=== PATIENT | male | born 1975 | race Caucasian/White ===

== ENCOUNTER 2016-08-22 10:57 | Inpatient (IN) | payer OTHER ==
[~2016-08-22] VITALS: Ht 180.3 cm; Wt 82.0 kg
[~2016-08-22 10:57] MED LIST: ATEN-104 PO; DILA8TAB4 PO; MORP60TA20 PO; RANI150 PO; VALI10TA PO
[2016-08-22 11:00] VITALS: BP 131/91; PULSE 101; RESP 16; TEMP 98.5; O2SAT 99
[2016-08-22] MEDS ORDERED: VANCOMYCIN INJ 1,000 MG in SODIUM CHLOR 0.9% 250 ML INJ 250 ML IV STA (11:20)
[2016-08-22] MEDS ORDERED: PIPERACIL-TAZO 4.5 GM PREMIX 100 ML IV STA (11:20)
[2016-08-22] MEDS ORDERED: SODIUM CHLOR 0.9% 1000 ML INJ 400 ML IV ONE (11:20)
[2016-08-22] MEDS ORDERED: SODIUM CHLOR 0.9% 1000 ML INJ 1,000 ML IV ONE ×2 (11:20)
[2016-08-22] MEDS ORDERED: ONDANSETRON HCL 4 MG/2 ML VIAL IV ONE (11:30)
--- NOTE | 2016-08-22 11:36 | PD ---
HPI . Redness and pain on the abdominal wall Chief Complaint: Skin Problem Time Seen by Provider: 11:11 Travel History International Travel<30 days: No Contact w/Intl Traveler<30days: No Traveled to known affect area: No History of Present Illness HPI The patient presents with a one-week history of redness and pain on the abdominal wall. He presumed infection and took some Keflex that he had left over from a previous infection. The Keflex did not help. Also, the patient has been on penicillin for dental infection. He describes the pain as constant and sharp and rates it as 8/10. He denies any associated fever. He does say that he had some vomiting earlier in the week. The patient is unable to me how his symptoms started and how they progressed. PFSH Past Medical History Arthritis: No Asthma: No Autoimmune Disease: No Blood Disorders: No Anxiety: No Depression: No Heart Rhythm Problems: No Cancer: No Cardiovascular Problems: No High Cholesterol: No Chemotherapy: No Chest Pain: No Congestive Heart Failure: No COPD: No Cerebrovascular Accident: No Diabetes: No Diminished Hearing: No Gastrointestinal Disorders: No GERD: No Glaucoma: No Headaches: No Hepatitis: No Hiatal Hernia: No Hypertension: Yes Kidney Stones: Yes Myocardial Infarction: No Radiation Therapy: No Renal Failure: No Seizures: No Sickle Cell Disease: No Sleep Apnea: No Thyroid Disease: No Ulcer: No Tetanus Vaccination: < 5 Years Influenza Vaccination: No Past Surgical History Abdominal Surgery: No AICD: No Body Medical Devices: KIDNEY STENT IN PLACE Cardiac Surgery: No Ear Surgery: No Endocrine Surgery: No Eye Surgery: No Genitourinary Surgery: Yes (KIDNEY STONE AND STENT) Gynecologic Surgery: No Oral Surgery: No Pacemaker: No Thoracic Surgery: No Other Surgery: Yes ("plastic stent in my back somewhere's for my kidneys") Social History Alcohol Use: Yes (20 BEERS/WEEK.... quit week ago) Tobacco Use: Yes ("1/2 pack of cigarettes a day") Substance Use: No Allergies-Medications (Allergen,Severity, Reaction): Coded Allergies: No Known Allergies (Verified , 08/22/16) Reported Meds & Prescriptions Reported Meds & Active Scripts Active Review of Systems Except as stated in HPI: all other systems reviewed are Neg General / Constitutional: No: Fever, Chills Gastrointestinal: Positive: Nausea, Vomiting, No: Diarrhea, Loss of Appetite Skin: Positive Change in Pigmentation Physical Exam Narrative Vital Signs Date Time Temp Pulse Resp B/P Pulse Ox O2 Delivery O2 Flow Rate FiO2 08/22/16 11:00 98.5 101 16 131/91 99 GENERAL: The patient is unusually emotional. SKIN: Warm and dry. The skin of his left abdominal wall is bright red. The redness extends to the left low back almost to the midline of the back. The patient is unable to tolerate palpation of the area. HEAD: Atraumatic. Normocephalic. EYES: Pupils equal and round. Extraocular movements are intact. ENT: No nasal bleeding or discharge. Mucous membranes pink and moist. NECK: Trachea midline. Neck is supple. CARDIOVASCULAR: Regular rate and rhythm. RESPIRATORY: No accessory muscle use. GASTROINTESTINAL: Thorough abdominal exam is not possible at this time because of the painful rash. MUSCULOSKELETAL: No obvious deformities. No edema. NEUROLOGICAL: Awake and alert. No obvious cranial nerve deficits. Motor grossly within normal limits. Normal speech. PSYCHIATRIC: Appropriate mood and affect; insight and judgment normal. Data Data Last Documented VS Vital Signs Date Time Temp Pulse Resp B/P Pulse Ox O2 Delivery O2 Flow Rate FiO2 08/22/16 11:00 98.5 101 16 131/91 99 Orders Complete Blood Count With Diff (08/22/16 11:20) Comprehensive Metabolic Panel (08/22/16 11:20) Lactic Acid Sepsis Protocol (08/22/16 11:20) Urinalysis - C+S If Indicated (08/22/16 11:20) Blood Culture (08/22/16 11:20) Iv Access Insert/Monitor (08/22/16 11:20) Morphine Inj (Morphine Inj) (08/22/16 11:30) Ondansetron Inj (Zofran Inj) (08/22/16 11:30) Ct Abd/Pel W Iv Contrast(Rout) (08/22/16 11:20) Piperacil-Tazo 4.5 Gm Premix (Zosyn 4.5 (08/22/16 11:20) Vancomycin Inj (Vancomycin Inj) (08/22/16 11:20) Sodium Chlor 0.9% 1000 Ml Inj (Ns 1000 M (08/22/16 11:20) Sodium Chlor 0.9% 1000 Ml Inj (Ns 1000 M (08/22/16 11:20) Sodium Chlor 0.9% 1000 Ml Inj (Ns 1000 M (08/22/16 11:20) Drug Screen, Random Urine (08/22/16 11:20) Alcohol (Ethanol) (08/22/16 11:20) Iohexol 350 Inj (Omnipaque 350 Inj) (08/22/16 12:11) Diet Regular Basic (08/22/16 Lunch) Vital Signs (Adult) SJ.Q4H (08/22/16 12:41) Ondansetron Inj (Zofran Inj) (08/22/16 12:45) Complete Blood Count With Diff (08/23/16 06:00) Labs Laboratory Tests Test 08/22/16 11:40 White Blood Count 17.6 TH/MM3 Red Blood Count 4.76 MIL/MM3 Hemoglobin 14.9 GM/DL Hematocrit 43.6 % Mean Corpuscular Volume 91.6 FL Mean Corpuscular Hemoglobin 31.2 PG Mean Corpuscular Hemoglobin 34.1 % Concent Red Cell Distribution Width 11.9 % Platelet Count 269 TH/MM3 Mean Platelet Volume 7.4 FL Neutrophils (%) (Auto) 81.3 % Lymphocytes (%) (Auto) 10.5 % Monocytes (%) (Auto) 5.4 % Eosinophils (%) (Auto) 1.4 % Basophils (%) (Auto) 1.4 % Neutrophils # (Auto) 14.5 TH/MM3 Lymphocytes # (Auto) 1.8 TH/MM3 Monocytes # (Auto) 0.9 TH/MM3 Eosinophils # (Auto) 0.2 TH/MM3 Basophils # (Auto) 0.2 TH/MM3 CBC Comment DIFF FINAL Differential Comment Sodium Level 140 MEQ/L Potassium Level 3.5 MEQ/L Chloride Level 103 MEQ/L Carbon Dioxide Level 28.9 MEQ/L Anion Gap 8 MEQ/L Blood Urea Nitrogen 9 MG/DL Creatinine 1.10 MG/DL Estimat Glomerular Filtration 74 ML/MIN Rate Random Glucose 102 MG/DL Lactic Acid Level 1.9 mmol/L Calcium Level 9.1 MG/DL Total Bilirubin 0.5 MG/DL Aspartate Amino Transf 26 U/L (AST/SGOT) Alanine Aminotransferase 32 U/L (ALT/SGPT) Alkaline Phosphatase 97 U/L Total Protein 8.3 GM/DL Albumin 3.3 GM/DL Ethyl Alcohol Level 68 MG/DL [facility] Medical Decision Making Medical Screen Exam Complete: Yes Emergency Medical Condition: Yes Differential Diagnosis My differential diagnosis includes but is not limited to localized wound infection, cellulitis, abscess Narrative Course Patient presents with cellulitis on the left abdominal wall. It is actually pretty impressive. It extends from the midline of his abdomen around to the midline of his back on the left side. It involves several dermatomes. It does not look like shingles although it is confined to the left side. The skin is bright red and warm to the touch. I have ordered an abdominal CT to see the extent of the cellulitis and to rule out possible abscess. I have also done a septic workup. In the meantime, he will be given Zosyn and vancomycin. I have also ordered a fluid bolus. Last Impressions Abdomen/Pelvis CT 08/22/16 1120 Signed Impressions: Service Date/Time: Monday, August 22, 2016 11:49 - CONCLUSION: 1. Edema and skin thickening in the left anterior abdominal wall most characteristic of cellulitis without discrete or loculated abscess. No acute findings within the abdomen and pelvis. Small hiatal hernia. Erwin Jones MD CBC & BMP Diagram 08/22/16 11:40 Lactic acid level is normal. Alcohol level was 68. Sepsis Criteria SIRS Criteria (2 or more): Heart rate over 90, WBC > 70495, < 4000 or > 10% bands Sepsis Criteria (SIRS+source): Infect source susp/known Criteria Outcome: Meets SIRS criteria, Meets sepsis criteria Physician Communication Physician Communication Dr. Jean will admit for IV ABX. Diagnosis Primary Impression: Abdominal wall cellulitis Additional Impression: Sepsis affecting skin Condition: Stable Vicki Hernandez MD August 22, 2016 11:36
[2016-08-22 12:04] LABS: AUTOMATED NEUTROPHIL # 14.5 TH/MM3 (1.8-7.7); BASOPHIL # 0.2 TH/MM3 (0-0.2); BASOPHIL % 1.4 % (0.0-2.0); EOSINOPHIL # 0.2 TH/MM3 (0-0.4); EOSINOPHIL % 1.4 % (0.0-4.0); HEMATOCRIT 43.6 % (39.0-51.0); LYMPH % 10.5 % (9.0-44.0); LYMPHOCYTE # 1.8 TH/MM3 (1.0-4.8); MEAN CELL VOLUME 91.6 FL (80.0-100.0); MEAN CORPUSCULAR HEMOGLOBIN 31.2 PG (27.0-34.0); MEAN CORPUSCULAR HGB CONC 34.1 % (32.0-36.0); MONO % 5.4 % (0.0-8.0); NEUT % 81.3 % (16.0-70.0); PLATELET COUNT 269 TH/MM3 (150-450); RED BLOOD COUNT 4.76 MIL/MM3 (4.50-5.90); RED CELL DISTRIBUTION WIDTH 11.9 % (11.6-17.2); WHITE BLOOD COUNT 17.6 TH/MM3 (4.0-11.0)
[2016-08-22 12:05] LABS: HEMO FLAGS DIFF FINAL
[2016-08-22] MEDS: MORPHINE SULFATE 8 MG/ML INJ IV PUSH PRN ×4 (12:06→23:55)
[2016-08-22 12:07] LABS: CHLORIDE 103 MEQ/L (98-107); POTASSIUM 3.5 MEQ/L (3.5-5.1); SODIUM (NA) 140 MEQ/L (136-145)
[2016-08-22 12:10] LABS: ANION GAP 8 MEQ/L (5-15); BICARBONATE 28.9 MEQ/L (21.0-32.0)
[2016-08-22 12:11] LABS: BLOOD UREA NITROGEN 9 MG/DL (7-18)
[2016-08-22] MEDS ORDERED: IOHEXOL 350 MG/ML 10 ML VIAL (for RAD DIAG) IV ONE (12:11)
[2016-08-22 12:13] LABS: ALT (GPT) 32 U/L (12-78); AST (GOT) 26 U/L (15-37)
[2016-08-22 12:14] LABS: GLOMERULAR FILTRATION RATE 74 ML/MIN (>89)
[2016-08-22 12:15] LABS: TOTAL BILIRUBIN ADULT 0.5 MG/DL (0.2-1.0)
[2016-08-22 12:16] LABS: ALKALINE PHOSPHATASE 97 U/L (45-117)
--- NOTE | 2016-08-22 12:21 | RADHPO ---
EXAM DATE/TIME: 08/22/2016 11:49 [place] COMPARISON: No previous studies available for comparison. INDICATIONS : Pain and redness across the middle of abdomen for a week. IV CONTRAST: 100 cc Omnipaque 350 (iohexol) IV ORAL CONTRAST: No oral contrast ingested. RADIATION DOSE: 9.98 CTDIvol (mGy) MEDICAL HISTORY : Renal calculi. stents SURGICAL HISTORY : None. ENCOUNTER: Initial ACUITY: 1 week PAIN SCALE: 10/10 LOCATION: Bilateral abdomen TECHNIQUE: Volumetric scanning of the abdomen and pelvis was performed. Using automated exposure control and ad justment of the mA and/or kV according to patient size, radiation dose was kept as low as reasonably achievable to obtain optimal diagnostic quality images. FINDINGS: There is skin thickening and extensive stranding in the subcutaneous tissues of the anterior abdomina l wall on the left side both above and below the umbilicus is characteristic of a cellulitis. No disc rete or drainable fluid to suggest abscess. Minimal basilar atelectasis in the lungs. Small hiatal hernia. Mild fatty liver. Spleen, adrenals, ki dneys and pancreas unremarkable. No calcified gallstones or biliary ductal dilatation. There is no free fluid. No bowel obstruction. No adenopathy. CONCLUSION: 1. Edema and skin thickening in the left anterior abdominal wall most characteristic of cellulitis wi thout discrete or loculated abscess. No acute findings within the abdomen and pelvis. Small hiatal he rnia. Erwin Jones MD on August 22, 2016 at 12:15 Board Certified Radiologist. This report was verified electronically.
[2016-08-22] MEDS ORDERED: ONDANSETRON HCL 4 MG/2 ML VIAL IV PUSH PRN (12:45)
[2016-08-22 13:12] VITALS: BP 123/67; PULSE 72; RESP 18; O2SAT 97
[2016-08-22] MEDS ORDERED: Vancomycin Consult Pharmacy 1 EA OTHER SCH (13:15)
[2016-08-22] MEDS ORDERED: ACETAMINOPHEN/HYDROcodone 325 MG/5 MG TAB PO PRN (13:15)
[2016-08-22] MEDS ORDERED: ACETAMINOPHEN 325 MG TAB PO PRN (13:15)
[2016-08-22] MEDS: HYDROmorphone HCL PF 1 MG/ML VIAL IV PUSH PRN ×3 (13:19→22:37)
--- NOTE | 2016-08-22 13:19 | HHI.HP ---
[facility] No Primary Care Physician Admission Diagnosis abdominal wall cellulitis, sepsis Diagnoses: (1) Abdominal wall cellulitis Diagnosis: Principal (2) Sepsis affecting skin Diagnosis: Principal Chief Complaint: swelling and redness of the abdomen Travel History International Travel<30 Days: No Contact w/Intl Traveler <30 Da: No Traveled to Known Affected Are: No History of Present Illness patient is a 41 y/o male with history of hypertension who presented to ER with swelling and redness of the abdomen. he says that it probably started as a ' spider bite' a week ago. the redness, swelling and pain started to get worse.this involves the left side of the abdomen with some radiation to the left flank. he reports some fever and chills at home. he says that he took some keflex at home but with no significant improvement. Review of Systems Constitutional: COMPLAINS OF: Fever, Chills, DENIES: Weight loss, Night Sweats Eyes: DENIES: Blurred vision, Diplopia, Vision loss, Double Vision Ears, nose, mouth, throat: DENIES: Tinnitus, Vertigo, Throat pain, Epistaxis Respiratory: DENIES: Apneas, Cough, Snoring, Wheezing, Hemoptysis, Sputum production, Shortness of breath Cardiovascular: DENIES: Chest pain, Palpitations, Syncope, Dyspnea on Exertion , PND, Lower Extremity Edema, Orthopnea, Claudication Gastrointestinal: COMPLAINS OF: Abdominal pain, DENIES: Black stools, Bloody stools, Constipation, Diarrhea, Nausea, Vomiting, Difficulty Swallowing, Anorexia Genitourinary: DENIES: Urinary frequency, Urgency, Hematuria, Dysuria Musculoskeletal: DENIES: Joint pain, Muscle aches, Stiffness, Joint Swelling Integumentary: DENIES: Rash Neurologic: DENIES: Abnormal gait, Headache, Localized weakness, Paresthesias, Seizures, Speech Problems, Tremor, Poor Balance Psychiatric: DENIES: Anxiety, Confusion, Mood changes, Depression, Hallucinations, Agitation, Suicidal Ideation, Homicidal Ideation, Delusions Past Family Social History Past Medical History hypertension Past Surgical History surgery on the left leg. Reported Medications used to take atenolol in the past. Allergies: Coded Allergies: No Known Allergies (Verified , 08/22/16) Active Ordered Medications Current Medications Morphine Sulfate (Morphine Inj) 4 mg Q1HR PRN IV PUSH PAIN Last administered on 08/22/16 12:06; Start 08/22/16 at 11:30 Ondansetron HCl 4 mg 4 mg ONCE ONCE IV Last administered on 08/22/16 12:06; Start 08/22/16 at 11:30; Stop 08/22/16 at 11:31; Status DC Piperacillin Sod/ Tazobactam Sod 100 ml @ 200 mls/hr ONCE STAT IV Last administered on 08/22/16 12:07; Start 08/22/16 at 11:20; Stop 08/22/16 at 11:49 ; Status DC Vancomycin HCl 1000 mg/Sodium Chloride 250 ml @ 250 mls/hr ONCE STAT IV Last administered on 08/22/16 12:37; Start 08/22/16 at 11:20; Stop 08/22/16 at 12:19 ; Status DC Sodium Chloride 1,000 ml @ 1,000 mls/hr Q1H ONCE IV Last administered on 12:07; Start 08/22/16 at 11:20; Stop 08/22/16 at 12:19; Status DC Sodium Chloride 1,000 ml @ 1,000 mls/hr Q1H ONCE IV ; Start 08/22/16 at 11:20; Stop 08/22/16 at 12:19; Status DC Sodium Chloride (NS 1000 ml Inj) 400 ml @ 1,000 mls/hr Q24M ONCE IV ; Start at 11:20; Stop 08/22/16 at 11:43; Status DC Iohexol (Omnipaque 350 Inj) 100 ml STK-MED ONCE IV Last administered on 12:11; Start 08/22/16 at 12:11; Stop 08/22/16 at 12:12; Status DC Ondansetron HCl (Zofran Inj) 4 mg Q8HR PRN IV PUSH NAUSEA; Start 08/22/16 at 12 :45; Status UNV Social History quit smoking a week ago. drinks occasionally and smokes marijuana. Physical Exam Vital Signs Vital Signs Date Time Temp Pulse Resp B/P Pulse Ox O2 Delivery O2 Flow Rate FiO2 08/22/16 11:00 98.5 101 16 131/91 99 Physical Exam GENERAL: This is a well-nourished, well-developed patient, in no apparent distress. SKIN: erythema noted over the left abdomen. HEAD: Atraumatic. Normocephalic. No temporal or scalp tenderness. EYES: Pupils equal round and reactive. Extraocular motions intact. No scleral icterus. No injection or drainage. ENT: Nose without bleeding, purulent drainage or septal hematoma. Throat without erythema, tonsillar hypertrophy or exudate. Uvula midline. Airway patent. NECK: Trachea midline. No JVD or lymphadenopathy. Supple, nontender, no meningeal signs. CARDIOVASCULAR: Regular rate and rhythm without murmurs, gallops, or rubs. RESPIRATORY: Clear to auscultation. Breath sounds equal bilaterally. No wheezes , rales, or rhonchi. GASTROINTESTINAL: skin induration with some erythema, warmth and swelling noted over the left abdomen. MUSCULOSKELETAL: Extremities without clubbing, cyanosis, or edema. No joint tenderness, effusion, or edema noted. No calf tenderness. Negative Homans sign bilaterally. NEUROLOGICAL: Awake and alert. Cranial nerves II through XII intact. Motor and sensory grossly within normal limits. Five out of 5 muscle strength in all muscle groups. Normal speech. Laboratory Laboratory Tests Test 08/22/16 11:40 White Blood Count 17.6 Red Blood Count 4.76 Hemoglobin 14.9 Hematocrit 43.6 Mean Corpuscular Volume 91.6 Mean Corpuscular Hemoglobin 31.2 Mean Corpuscular Hemoglobin 34.1 Concent Red Cell Distribution Width 11.9 Platelet Count 269 Mean Platelet Volume 7.4 Neutrophils (%) (Auto) 81.3 Lymphocytes (%) (Auto) 10.5 Monocytes (%) (Auto) 5.4 Eosinophils (%) (Auto) 1.4 Basophils (%) (Auto) 1.4 Neutrophils # (Auto) 14.5 Lymphocytes # (Auto) 1.8 Monocytes # (Auto) 0.9 Eosinophils # (Auto) 0.2 Basophils # (Auto) 0.2 CBC Comment DIFF FINAL Differential Comment Sodium Level 140 Potassium Level 3.5 Chloride Level 103 Carbon Dioxide Level 28.9 Anion Gap 8 Blood Urea Nitrogen 9 Creatinine 1.10 Estimat Glomerular Filtration 74 Rate Random Glucose 102 Lactic Acid Level 1.9 Calcium Level 9.1 Total Bilirubin 0.5 Aspartate Amino Transf 26 (AST/SGOT) Alanine Aminotransferase 32 (ALT/SGPT) Alkaline Phosphatase 97 Total Protein 8.3 Albumin 3.3 Ethyl Alcohol Level 68 Date/Time Procedure Status Source Growth 08/22/16 11:47 Aerobic Blood Culture Received Blood Peripheral Pending 08/22/16 11:47 Anaerobic Blood Culture Received Blood Peripheral Pending Result Diagram: 08/22/16 1140 08/22/16 1140 Imaging Last Impressions Abdomen/Pelvis CT 08/22/16 1120 Signed Impressions: Service Date/Time: Monday, August 22, 2016 11:49 - CONCLUSION: 1. Edema and skin thickening in the left anterior abdominal wall most characteristic of cellulitis without discrete or loculated abscess. No acute findings within the abdomen and pelvis. Small hiatal hernia. Erwin Jones MD Assessment and Plan Assessment and Plan A/P - sepsis due to abdominal wall cellulitis CT of the abdomen with no abscess continue with broad spectrum IV antibiotics- continue with pain control follow the cultures and consult ID. -leukocytosis- due to infection- will monitor; CBC in am -history of hypertension; not on any meds- will monitor for now Discussed Condition With ER physician and the patient. Physician Certification 2 Midnight Certification Type: Admission for Inpatient Services Order for Inpatient Services The services are ordered in accordance with Medicare regulations or non- Medicare payer requirements, as applicable. In the case of services not specified as inpatient-only, they are appropriately provided as inpatient services in accordance with the 2-midnight benchmark. Estimated LOS (days): 2 days is the estimated time the patient will need to remain in the hospital, assuming treatment plan goals are met and no additional complications. Post-Hospital Plan: Home Rick Jean MD August 22, 2016 13:19
[2016-08-22] MEDS: ACETAMINOPHEN/HYDROcodone 325 MG/5 MG TAB PO PRN ×2 (13:20→21:37)
[2016-08-22] MEDS: NICOTINE 21 MG/24 HR PATCH T-DERMAL SCH (15:44)
[2016-08-22 16:00] VITALS: BP 137/87; PULSE 68; RESP 20; TEMP 96; O2SAT 99
[2016-08-22] MEDS ORDERED: PIPERACIL-TAZO 3.375 GM PREMIX 50 ML IV SCH (18:00)
--- NOTE | 2016-08-22 19:34 | PD.ID.CON ---
History of Present Illness Service ID Consult Requested By Dr Cavanaugh Reason for Consult abd wall cellulitis Primary Care Physician No Primary Care Physician Diagnoses: History of Present Illness The patient is a 41 yo male with fairly unremarkable past med history presents with a one-week history of redness and pain on the abdominal wall. He took some Keflex that he had left over from a previous infection, but it did not help. He denies any fever. 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 Active Ordered Medications Medications where reviewed in EMR Antibiotics Include: zosyn vanco Family History Non-Contributory. Social History quit smoking a week ago. drinks occasionally and smokes marijuana. Physical Exam Vital Signs Vital Signs Date Time Temp Pulse Resp B/P Pulse Ox O2 Delivery O2 Flow Rate FiO2 08/22/16 17:40 18 08/22/16 16:00 96.0 68 20 137/87 99 08/22/16 15:29 18 08/22/16 13:12 72 18 123/67 97 08/22/16 11:00 98.5 101 16 131/91 99 Physical Exam CONSTITUTIONAL/GENERAL: This is an adequately nourished patient, in no apparent distress. TUBES/LINES/DRAINS: SKIN: No jaundice, Large about 10 cm area of induration in LLQ exquisetely tender to palpation no fluctuance erytjma and tenderness is preading to the flank and L side of the back No opne lesions Few excoriations present scattred around including one on LLQ rashes, or lesions. Skin temperature appropriate. Not diaphoretic. HEAD: Atraumatic. Normocephalic. EYES: Pupils equal and round and reactive. Extraocular motions intact. No scleral icterus. No injection or drainage. Fundi not examined. ENT: Hearing grossly normal. Nose without bleeding or purulent drainage. Oral mucosae without visible erythema, exudates, masses, or lesions. NECK: Trachea midline. Supple, nontender. No palpable thyroid enlargement or nodularity. CARDIOVASCULAR: Regular rate and rhythm without murmurs, gallops, or rubs. No JVD. Peripheral pulses symmetric. RESPIRATORY/CHEST: Symmetric, unlabored respirations. Clear to auscultation. Breath sounds equal bilaterally. No wheezes, rales, or rhonchi. GASTROINTESTINAL: Abdomen soft, + tender where the skin lesion is present , nondistended. No hepato-splenomegaly, or palpable masses. No guarding. Bowel sounds present. GENITOURINARY: Without palpable bladder distension. Carter catheter in place. MUSCULOSKELETAL: Extremities without clubbing, cyanosis, or edema. No joint tenderness or effusion noted.No mottling or clubbing. LYMPHATICS: No palpable cervical or supraclavicular adenopathy. NEUROLOGICAL: Awake and alert. Motor and sensory grossly within normal limits. Follows commands. Cognitively sharp. Moves all extremities. PSYCHIATRIC: No obvious anxiety/depression. no apparent hallucinations or other psychotic thought process. Laboratory Laboratory Tests Test 08/22/16 11:40 White Blood Count 17.6 Red Blood Count 4.76 Hemoglobin 14.9 Hematocrit 43.6 Mean Corpuscular Volume 91.6 Mean Corpuscular Hemoglobin 31.2 Mean Corpuscular Hemoglobin 34.1 Concent Red Cell Distribution Width 11.9 Platelet Count 269 Mean Platelet Volume 7.4 Neutrophils (%) (Auto) 81.3 Lymphocytes (%) (Auto) 10.5 Monocytes (%) (Auto) 5.4 Eosinophils (%) (Auto) 1.4 Basophils (%) (Auto) 1.4 Neutrophils # (Auto) 14.5 Lymphocytes # (Auto) 1.8 Monocytes # (Auto) 0.9 Eosinophils # (Auto) 0.2 Basophils # (Auto) 0.2 CBC Comment DIFF FINAL Differential Comment Sodium Level 140 Potassium Level 3.5 Chloride Level 103 Carbon Dioxide Level 28.9 Anion Gap 8 Blood Urea Nitrogen 9 Creatinine 1.10 Estimat Glomerular Filtration 74 Rate Random Glucose 102 Lactic Acid Level 1.9 Calcium Level 9.1 Total Bilirubin 0.5 Aspartate Amino Transf 26 (AST/SGOT) Alanine Aminotransferase 32 (ALT/SGPT) Alkaline Phosphatase 97 Total Protein 8.3 Albumin 3.3 Ethyl Alcohol Level 68 Date/Time Procedure Status Source Growth 08/22/16 11:47 Aerobic Blood Culture Received Blood Peripheral Pending 08/22/16 11:47 Anaerobic Blood Culture Received Blood Peripheral Pending Result Diagram: 08/22/16 1140 08/22/16 1140 Imaging Last Impressions Abdomen/Pelvis CT 08/22/16 1120 Signed Impressions: Service Date/Time: Monday, August 22, 2016 11:49 - CONCLUSION: 1. Edema and skin thickening in the left anterior abdominal wall most characteristic of cellulitis without discrete or loculated abscess. No acute findings within the abdomen and pelvis. Small hiatal hernia. Erwin Jones MD Assessment and Plan Assessment and Plan Cellulitis, phlegmone and probably early abscess of abdominal wall, likely staph , including MRSA vs strep Leukocytosis Ho MRSA cont vancomycin cont zosyn for now add clindamycin consult gen surgery for I+D Raquel Marr MD August 22, 2016 19:34
[2016-08-22] MEDS ORDERED: ALPRAZolam 0.25 MG TAB PO ONE (20:15)
[2016-08-22 21:30] VITALS: BP 130/96; PULSE 63; RESP 18; TEMP 96.1; O2SAT 99
[2016-08-22] MEDS: CLINDAMYCIN INJ 900 MG in SODIUM CHLORIDE 0.9% INJ 100 ML IV SCH (21:37)
[2016-08-22] MEDS: VANCOMYCIN INJ 1,250 MG in SODIUM CHLOR 0.9% 250 ML INJ 250 ML IV SCH (22:00)
[2016-08-22] MEDS: PIPERACIL-TAZO 3.375 GM PREMIX 50 ML IV SCH (23:54)
[2016-08-23] VITALS (7 sets, daily range): BP systolic 119–171; BP diastolic 64–105; PULSE 68–94; RESP 16–20; TEMP 96.4–98.6; O2SAT 94–100
[2016-08-23] MEDS: NICOTINE 21 MG/24 HR PATCH T-DERMAL SCH (01:38)
[2016-08-23] MEDS: ACETAMINOPHEN/HYDROcodone 325 MG/5 MG TAB PO PRN ×2 (01:39→05:39)
[2016-08-23] MEDS: HYDROmorphone HCL PF 1 MG/ML VIAL IV PUSH PRN ×3 (02:49→11:47)
[2016-08-23 03:25] LABS: BLOOD, URINE NEG (NEG); GLUCOSE,URINE NEG (NEG); KETONE, URINE NEG (NEG); NITRITE,URINE NEG (NEG)
[2016-08-23 03:32] LABS: BARBITURATES, URINE NEG (NEG)
[2016-08-23 03:33] LABS: AMPHETAMINE, URINE NEG (NEG); COCAINE, URINE NEG (NEG)
[2016-08-23 03:39] LABS: COMMENT (UR) CULT NOT INDICATED; CULTURE IF INDICATED CULT NOT INDICATED; RBC, URINE 0-2 /hpf (0-3); SQUAMOUS EPITHELIAL CELL URINE 0-5 /hpf (0-5); URINE COLOR AMBER (YELLW/STRAW); WBC, URINE 0-2 /hpf (0-5)
[2016-08-23] MEDS: MORPHINE SULFATE 8 MG/ML INJ IV PUSH PRN ×3 (04:09→12:50)
[2016-08-23] MEDS: CLINDAMYCIN INJ 900 MG in SODIUM CHLORIDE 0.9% INJ 100 ML IV SCH ×3 (05:37→21:06)
[2016-08-23] MEDS: PIPERACIL-TAZO 3.375 GM PREMIX 50 ML IV SCH ×4 (05:37→23:27)
[2016-08-23 07:26] LABS: AUTOMATED NEUTROPHIL # 5.8 TH/MM3 (1.8-7.7); BASOPHIL # 0.1 TH/MM3 (0-0.2); BASOPHIL % 1.5 % (0.0-2.0); EOSINOPHIL # 0.4 TH/MM3 (0-0.4); EOSINOPHIL % 4.8 % (0.0-4.0); HEMATOCRIT 39.8 % (39.0-51.0); HEMO FLAGS DIFF FINAL; LYMPH % 18.9 % (9.0-44.0); LYMPHOCYTE # 1.6 TH/MM3 (1.0-4.8); MEAN CELL VOLUME 92.7 FL (80.0-100.0); MEAN CORPUSCULAR HEMOGLOBIN 31.1 PG (27.0-34.0); MEAN CORPUSCULAR HGB CONC 33.5 % (32.0-36.0); MONO % 8.5 % (0.0-8.0); NEUT % 66.3 % (16.0-70.0); PLATELET COUNT 231 TH/MM3 (150-450); RED BLOOD COUNT 4.29 MIL/MM3 (4.50-5.90); RED CELL DISTRIBUTION WIDTH 12.1 % (11.6-17.2); WHITE BLOOD COUNT 8.6 TH/MM3 (4.0-11.0)
--- NOTE | 2016-08-23 07:35 | HHI.PR ---
Subjective Remarks still with redness and pain to the left abdomen. remains afebrile. Objective Vitals Vital Signs Date Time Temp Pulse Resp B/P Pulse Ox O2 Delivery O2 Flow Rate FiO2 08/23/16 03:28 97.0 72 16 138/102 100 08/22/16 21:30 96.1 63 18 130/96 99 08/22/16 17:40 18 08/22/16 16:00 96.0 68 20 137/87 99 08/22/16 15:29 18 08/22/16 13:12 72 18 123/67 97 08/22/16 11:00 98.5 101 16 131/91 99 I/O 08/22/16 08/22/16 08/22/16 08/23/16 08/23/16 08/23/16 07:00 15:00 23:00 07:00 15:00 23:00 Intake Total 100 ml 1450 ml Output Total 200 ml Balance 100 ml 1450 ml -200 ml Intake Oral 900 ml IV Total 100 ml 550 ml Output Urine Total 200 ml # Voids 3 Result Diagram: 08/22/16 1140 08/22/16 1140 Imaging Last Impressions Abdomen/Pelvis CT 08/22/16 1120 Signed Impressions: Service Date/Time: Monday, August 22, 2016 11:49 - CONCLUSION: 1. Edema and skin thickening in the left anterior abdominal wall most characteristic of cellulitis without discrete or loculated abscess. No acute findings within the abdomen and pelvis. Small hiatal hernia. Erwin Jones MD Objective Remarks GENERAL: This is a well-nourished, well-developed patient, in no apparent distress. CARDIOVASCULAR: Regular rate and regular rhythm without murmurs, gallops, or rubs. RESPIRATORY: Clear to auscultation. Breath sounds equal bilaterally. No wheezes , rales, or rhonchi. GASTROINTESTINAL: erythema, skin induration and tenderness over the left abdomen MUSCULOSKELETAL: Extremities without clubbing, cyanosis, or edema. NEURO: Alert & Oriented x4 to person, place, time, situation. Moves all ext x4 skin; erythema over the left abdomen Procedures none Medications and IVs Current Medications Morphine Sulfate (Morphine Inj) 4 mg Q1HR PRN IV PUSH PAIN Last administered on 08/23/16t 04:09; Start 08/22/16 at 11:30 Ondansetron HCl 4 mg 4 mg ONCE ONCE IV Last administered on 08/22/16 12:06; Start 08/22/16 at 11:30; Stop 08/22/16 at 11:31; Status DC Piperacillin Sod/ Tazobactam Sod 100 ml @ 200 mls/hr ONCE STAT IV Last administered on 08/22/16 12:07; Start 08/22/16 at 11:20; Stop 08/22/16 at 11:49 ; Status DC Vancomycin HCl 1000 mg/Sodium Chloride 250 ml @ 250 mls/hr ONCE STAT IV Last administered on 08/22/16 12:37; Start 08/22/16 at 11:20; Stop 08/22/16 at 12:19 ; Status DC Sodium Chloride 1,000 ml @ 1,000 mls/hr Q1H ONCE IV Last administered on 12:07; Start 08/22/16 at 11:20; Stop 08/22/16 at 12:19; Status DC Sodium Chloride 1,000 ml @ 1,000 mls/hr Q1H ONCE IV Last administered on 13:24; Start 08/22/16 at 11:20; Stop 08/22/16 at 12:19; Status DC Sodium Chloride (NS 1000 ml Inj) 400 ml @ 1,000 mls/hr Q24M ONCE IV Last administered on 08/22/16 15:25; Start 08/22/16 at 11:20; Stop 08/22/16 at 11:43 ; Status DC Iohexol (Omnipaque 350 Inj) 100 ml STK-MED ONCE IV Last administered on 12:11; Start 08/22/16 at 12:11; Stop 08/22/16 at 12:12; Status DC Ondansetron HCl 4 mg 4 mg Q8HR PRN IV PUSH NAUSEA; Start 08/22/16 at 12:45 Pharmacy Profile Note 0 ml @ 0 mls/hr UNSCH OTHER ; Start 08/22/16 at 13:15 Piperacillin Sod/ Tazobactam Sod (Zosyn 3.375 Gm Premix) 50 ml @ 100 mls/hr Q6H IV Last administered on 08/22/16 17:09; Start 08/22/16 at 18:00; Stop at 20:06; Status DC Acetaminophen/ Hydrocodone Bitart ([place] 5-325 Mg) 1 tab Q4H PRN PO PAIN < 5; Start 08/22/16 at 13:15 Acetaminophen/ Hydrocodone Bitart ([place] 5-325 Mg) 2 tab Q4H PRN PO PAIN >5 Last administered on 08/23/16 05:39; Start 08/22/16 at 13:15 Hydromorphone HCl (Dilaudid Pf Inj) 0.5 mg Q4H PRN IV PUSH BREAKTHROUGH PAIN Last administered on 08/23/16 07:28; Start 08/22/16 at 13:15 Acetaminophen 650 mg 650 mg Q4H PRN PO FEVER; Start 08/22/16 at 13:15 Vancomycin HCl/ Sodium Chloride (Vancomycin Inj/ NS 250 ml Inj) 262.5 ml @ 250 mls/hr Q12H IV Last administered on 08/22/16 22:00; Start 08/22/16 at 22:00 Miscellaneous Information SPECIFIC LAB TO BE DRAWN:VANCO TROUGH DATE TO... ONCE ONCE .XX ; Start 08/24/16 at 09:45; Stop 08/24/16 at 09:46 Nicotine (Habitrol 21 Mg Patch.24 Hr) 1 patch DAILY T-DERMAL Last administered on 08/23/16 01:38; Start 08/22/16 at 13:45 Miscellaneous Information 1 DAILY T-DERMAL ; Start 08/23/16 at 09:00 Alprazolam 0.25 mg 0.25 mg ONCE ONCE PO Last administered on 08/22/16 20:11; Start 08/22/16 at 20:15; Stop 08/22/16 at 20:16; Status DC Clindamycin Phosphate 900 mg/ Sodium Chloride 106 ml @ 212 mls/hr Q8H IV Last administered on 08/23/16 05:37; Start 08/22/16 at 21:00 Piperacillin Sod/ Tazobactam Sod (Zosyn 3.375 Gm Premix) 50 ml @ 100 mls/hr Q6H IV Last administered on 08/23/16 05:37; Start 08/23/16 at 00:00 A/P Assessment and Plan A/P - sepsis due to abdominal wall cellulitis CT of the abdomen with no abscess continue with broad spectrum IV antibiotics- continue with pain control follow the cultures . ID consult appreciated- surgery consulted for I/D- -leukocytosis- due to infection- will monitor. -history of hypertension; not on any meds- BP controlled- will monitor for now Rick Jean MD August 23, 2016 07:35
--- NOTE | 2016-08-23 07:47 | MB ---
cc: ADDY MOSLEY MD DATE OF CONSULTATION: 08/23/2016 REASON FOR CONSULTATION: Abdominal wall cellulitis, abscess. HISTORY OF PRESENT ILLNESS: The patient is a 41 -year-old male who presents with severe swelling and redness of the abdomen. He states this started about a week ago and continued to progress and get worse. He states that the pain currently is a 9/10, it was a 8/10 before he said there was a significant left leg cellulitis and anterior abdominal wall cellulitis but has had some localization and increased fluctuance after initiation of antibiotics. He says the pain is improved with some intravenous medication, he states that it is worst with movement and palpitation and better with lying still. He did have a previous history of methicillin-resistant Staphylococcus aureus infection and had a history of abscess in similar location, status post incision and drainage at [facility] with improvement but then the patient had recurrence. The patient states that he does smoke cigarettes and has occasional ethyl alcohol, otherwise history of kidney stones. CT scan evaluated showing cellulitic process anterior abdominal wall white count initially 17,000. PAST MEDICAL HISTORY 1. Hypertension 2. Kidney stones. 3. Methicillin-resistant Staphylococcus aureus infection. PAST SURGICAL HISTORY Left leg injury. MEDICATIONS Atenolol the past. ALLERGIES NO KNOWN DRUG ALLERGIES. SOCIAL HISTORY The patient just recently quit smoking, occasional EtOH occasional THC. FAMILY HISTORY Denies hypertension, diabetes. ALLERGIES NO KNOWN DRUG ALLERGIES. REVIEW OF SYSTEMS GENERAL: Denies headaches. Complains of a chills. HEAD, EYES, EARS, NOSE, AND THROAT: Denies eye pain, ear pain. NECK: denies swallowing pain. CARDIOVASCULAR SYSTEM: denies palpitations or pain. RESPIRATORY: Denies cough or wheeze. ABDOMEN: Complained of abdominal pain and decreased intake. MUSCULOSKELETAL: Denies swelling or pain or arthralgias. NEUROLOGIC: Denies any numbness, tingling. PSYCHIATRIC: Denies change in mood or sensorium. GENITOURINARY: Denies dysuria, hematuria. ENDOCRINE: Endocrine denies polyuria, polydipsia. PHYSICAL EXAMINATION GENERAL: The patient is in no acute distress. VITAL SIGNS: Temperature 97, pulse 72, respirations 16, blood pressure 138/102. Pulse ox 100% on room air. HEAD, EYES, EARS, NOSE, AND THROAT: PERRLA, pupils equal, round, reactive. NECK: Supple. Trachea midline. LUNGS: Clear to auscultation bilateral expansion. HEART: S1-S2 regular rhythm. ABDOMEN: Positive tenderness to palpation, proximally 10 cm x 3 cm area of extreme tenderness to palpation erythema, induration. Large area of flank and anterior abdominal wall cellulitis. Per report improving. EXTREMITIES: Warm, well-perfused. NEUROLOGIC: GCS of 15, 5/5 motor all extremities. Left lower extremity scar. PSYCHIATRIC: good insight, good judgment. INTEGUMENT: Massive cellulitis and abscess. LABORATORY AND DIAGNOSTIC DATA WBC 17.6, hemoglobin 14.9, hematocrit 43.6, platelets 2,69, sodium 40, potassium 3.5, chloride 103, BUN 9, creatinine of 1.1, AST 26, ALT 32, albumin 3.3. CT scan reviewed by myself done on 08/22/2016 edema, skin thickening anterior abdominal wall cellulitis. No discrete abscess or fluid. ASSESSMENT The patient is a 41-year-old male anterior abdominal wall cellulitis of concern for abscess. PLAN A full clinical radiologic laboratory workup the patient with above-named issue including a leukocytosis, abscess and cellulitis to the anterior abdominal wall. At this point the patient will need incision and drainage, we will discuss with organic preparation analyst surgical feeding whether this will be done today versus tomorrow also noted be beneficial to allow the abscess to fully demarcated self to purulent cavity as CT scan from yesterday did show cellulitic process without definitive fluid collection but I do agree the patient will ultimately need incision and drainage of this cavity. IV antibiotics pain control. RECOMMENDATIONS 1. Quit smoking. 2. Wound care. 3. We will plan for I&D possible vac, likely today or tomorrow. MD RADHIKA Kowalski/guillermina /6:16 AM /6:54 AM NELLIE
[2016-08-23] MEDS: REMOVE OLD PATCH T-DERMAL SCH (09:00)
[2016-08-23] MEDS: VANCOMYCIN INJ 1,250 MG in SODIUM CHLOR 0.9% 250 ML INJ 250 ML IV SCH ×2 (09:43→22:29)
[2016-08-23] MEDS ORDERED: fentaNYL CITRATE 250 MCG/5 ML AMP ONE (13:21)
[2016-08-23] MEDS ORDERED: BUPIVACAINE/EPINEPHRINE 0.25% PF 30 ML VIAL INFIL ONE (13:45)
[2016-08-23] MEDS ORDERED: MORPHINE SULFATE 10 MG/ML INJ ONE (14:17)
[2016-08-23] MEDS: KETOROLAC TROMETHAMINE 30 MG/ML (IVP) VIAL IV PUSH PRN (14:24)
--- NOTE | 2016-08-23 14:26 | HHI.PR ---
Subjective Subjective Notes s/p ID abdominal wall abscess Objective Vitals/I&O Vital Signs Date Time Temp Pulse Resp B/P Pulse Ox O2 Delivery O2 Flow Rate FiO2 08/23/16 13:10 08/23/16 12:00 96.5 81 18 97 Labs Laboratory Tests Test 08/23/16 08/23/16 00:00 06:31 Urine Color DEBORAH Urine Turbidity CLEAR Urine pH 6.0 Urine Specific Yulan GREATER THAN 1.035 Urine Protein TRACE Urine Glucose (UA) NEG Urine Ketones NEG Urine Occult Blood NEG Urine Nitrite NEG Urine Bilirubin NEG Urine Leukocyte Esterase NEG Urine RBC 0-2 Urine WBC 0-2 Urine Squamous Epithelial 0-5 Cells Urine Bacteria NONE Microscopic Urinalysis Comment CULT NOT INDICATED Urine Opiates Screen POS Urine Barbiturates Screen NEG Urine Amphetamines Screen NEG Urine Benzodiazepines Screen POS Urine Cocaine Screen NEG Urine Cannabinoids Screen POS White Blood Count 8.6 Red Blood Count 4.29 Hemoglobin 13.4 Hematocrit 39.8 Mean Corpuscular Volume 92.7 Mean Corpuscular Hemoglobin 31.1 Mean Corpuscular Hemoglobin 33.5 Concent Red Cell Distribution Width 12.1 Platelet Count 231 Mean Platelet Volume 7.7 Neutrophils (%) (Auto) 66.3 Lymphocytes (%) (Auto) 18.9 Monocytes (%) (Auto) 8.5 Eosinophils (%) (Auto) 4.8 Basophils (%) (Auto) 1.5 Neutrophils # (Auto) 5.8 Lymphocytes # (Auto) 1.6 Monocytes # (Auto) 0.7 Eosinophils # (Auto) 0.4 Basophils # (Auto) 0.1 CBC Comment DIFF FINAL Differential Comment Date/Time Procedure Status Source Growth 08/22/16 11:47 Aerobic Blood Culture - Preliminary Resulted Blood Peripheral NO GROWTH IN 1 DAY 08/22/16 11:47 Anaerobic Blood Culture - Preliminary Resulted Blood Peripheral NO GROWTH IN 1 DAY Wound Wound : Dressing: VAC A/P Assessment and Plan s/p ID abd wall abscess plan VAC change thursday if still admitted will do in OR if discharged can FU in office and will arrange outpatient VAC change will need SW to arrange home VAC OK for DC from surgery standpoint ABX per ID Laurent Ware MD August 23, 2016 14:26
[2016-08-23] MEDS: MORPHINE SULFATE 10 MG/ML INJ ONE (14:31)
[2016-08-23] MEDS ORDERED: SODIUM CHLOR 0.9% 1000 ML INJ 1,000 ML ONE (14:39)
[2016-08-23] MEDS: HYDROmorphone HCL PF 2 MG/ML VIAL IV PUSH PRN ×2 (14:43→21:07)
--- NOTE | 2016-08-23 14:47 | MP ---
cc: NICKY DREW M.D. DATE OF SURGERY: 08/23/2016 PREOPERATIVE DIAGNOSIS 1. left abdominal wall abscess. 2. History of MRSA POSTOPERATIVE DIAGNOSIS 1. left abdominal wall abscess. 2. History of MRSA PROCEDURE PERFORMED I&D left abdominal wall abscess 6 X 5 centimeters SURGEON Nicky Drew ANESTHESIA General tracheal COMPLICATIONS NONE. INDICATIONS FOR PROCEDURE Mrs. Alfonso is a 41-year-old gentleman who was admitted 08/22/2016 with a recurrent left lower quadrant abdominal wall abscess. Apparently this is been previously I&D at another facility. He is placed on oral antibiotics but it recurred. He presented to the hospital with pain and tenderness in the left lower quadrant. On physical exam he is found have an x-ray a significant cellulitis in the left lower quadrant without an obvious abscess. CT scan did not demonstrate an obvious abscess. The patient is admitted for IV antibiotic therapy. The cellulitis worsened and the patient developed a fluctuant area and surgery was consulted for evaluation of I&D. The patient was seen by Dr. Pizano this morning and he agreed that the abscess needed be drained. Risks and benefits of abscess drainage was discussed with the patient. He was agreeable. Details the patient was identified, brought to the operating placed supine on the table. After adequate general tracheal anesthesia achieved the abdomen was prepped and draped in standard surgical fashion. 0.25% Marcaine injected into skin and subcutaneous tissue directly overlying the abscess. A transverse incision was made. A large amount of pus came out. Intraoperative cultures were sent. Manual finger dissection was used to break up all loculations. Wound was then irrigated out with 3 liters warm saline solution. Skin edges were trimmed back in order to keep the wound apart in the small vac sponge was placed into the wound. Vac device was deployed. The patient tolerated procedure well as awakened successfully extubated, brought to recovery in stable condition. MD HIRAM Underwood/guillermina /2:21 PM /2:44 PM
[2016-08-23] MEDS: oxyCODONE/ACETAMINOPHEN 10 MG/325 MG TAB PO PRN (17:29)
[2016-08-24 01:24] VITALS: BP 135/89; PULSE 70; RESP 16; TEMP 97.9; O2SAT 99
[2016-08-24] MEDS: HYDROmorphone HCL PF 2 MG/ML VIAL IV PUSH PRN ×2 (01:27→06:06)
[2016-08-24] MEDS: CLINDAMYCIN INJ 900 MG in SODIUM CHLORIDE 0.9% INJ 100 ML IV SCH (04:59)
[2016-08-24] MEDS: oxyCODONE/ACETAMINOPHEN 10 MG/325 MG TAB PO PRN ×4 (05:04→20:20)
[2016-08-24 05:35] VITALS: BP 145/91; PULSE 79; RESP 18; TEMP 98.1; O2SAT 98
[2016-08-24] MEDS: PIPERACIL-TAZO 3.375 GM PREMIX 50 ML IV SCH (06:04)
[2016-08-24 08:00] VITALS: BP 147/94; PULSE 65; RESP 18; TEMP 96.1; O2SAT 95
[2016-08-24] MEDS: KETOROLAC TROMETHAMINE 30 MG/ML (IVP) VIAL IV PUSH PRN (08:00)
[2016-08-24] MEDS: NICOTINE 21 MG/24 HR PATCH T-DERMAL SCH (08:01)
[2016-08-24] MEDS: REMOVE OLD PATCH T-DERMAL SCH (09:00)
[2016-08-24] MEDS ORDERED: OXYC1TAB36 PO (09:30)
--- NOTE | 2016-08-24 09:33 | HHI.PR ---
Subjective Remarks in no acute distress. still with some pain to the left abdomen. no fever. Objective Vitals Vital Signs Date Time Temp Pulse Resp B/P Pulse Ox O2 Delivery O2 Flow Rate FiO2 08/24/16 05:35 98.1 79 18 145/91 98 08/24/16 01:24 97.9 70 16 135/89 99 08/23/16 21:30 97.4 77 18 134/81 98 08/23/16 16:00 96.4 72 20 120/84 94 08/23/16 15:15 97.9 86 20 135/89 94 Room Air 08/23/16 15:00 82 20 129/84 95 Room Air 08/23/16 14:45 80 20 135/80 98 Nasal Cannula 2 08/23/16 14:30 79 20 134/85 97 Nasal Cannula 3 08/23/16 14:12 98.1 81 20 116/70 97 Nasal Cannula 3 08/23/16 13:10 98.6 82 20 171/105 96 08/23/16 12:00 96.5 81 18 137/91 97 I/O 08/23/16 08/23/16 08/23/16 08/24/16 08/24/16 08/24/16 07:00 15:00 23:00 07:00 15:00 23:00 Intake Total 0 ml 420 ml Output Total 200 ml 650 ml 1400 ml Balance -200 ml -650 ml 420 ml -1400 ml Intake Oral 0 ml 120 ml IV Total 300 ml Output Urine Total 200 ml 650 ml 1400 ml # Bowel Movements 0 Result Diagram: 08/23/16 0631 08/22/16 1140 Objective Remarks GENERAL: This is a well-nourished, well-developed patient, in no apparent distress. CARDIOVASCULAR: Regular rate and regular rhythm without murmurs, gallops, or rubs. RESPIRATORY: Clear to auscultation. Breath sounds equal bilaterally. No wheezes , rales, or rhonchi. GASTROINTESTINAL: wound vac in place- erythema and swelling of the left abdomen has much improved. MUSCULOSKELETAL: Extremities without clubbing, cyanosis, or edema. NEURO: Alert & Oriented x4 to person, place, time, situation. Moves all ext x4 Procedures I/D of the abdominal wall abscess and wound vac placement Medications and IVs Current Medications Morphine Sulfate (Morphine Inj) 4 mg Q1HR PRN IV PUSH PAIN Last administered on 08/23/16 12:50; Start 08/22/16 at 11:30; Stop 08/23/16 at 14:31; Status DC Ondansetron HCl 4 mg 4 mg ONCE ONCE IV Last administered on 08/22/16 12:06; Start 08/22/16 at 11:30; Stop 08/22/16 at 11:31; Status DC Piperacillin Sod/ Tazobactam Sod 100 ml @ 200 mls/hr ONCE STAT IV Last administered on 08/22/16 12:07; Start 08/22/16 at 11:20; Stop 08/22/16 at 11:49 ; Status DC Vancomycin HCl 1000 mg/Sodium Chloride 250 ml @ 250 mls/hr ONCE STAT IV Last administered on 08/22/16 12:37; Start 08/22/16 at 11:20; Stop 08/22/16 at 12:19 ; Status DC Sodium Chloride 1,000 ml @ 1,000 mls/hr Q1H ONCE IV Last administered on 12:07; Start 08/22/16 at 11:20; Stop 08/22/16 at 12:19; Status DC Sodium Chloride 1,000 ml @ 1,000 mls/hr Q1H ONCE IV Last administered on 13:24; Start 08/22/16 at 11:20; Stop 08/22/16 at 12:19; Status DC Sodium Chloride (NS 1000 ml Inj) 400 ml @ 1,000 mls/hr Q24M ONCE IV Last administered on 08/22/16 15:25; Start 08/22/16 at 11:20; Stop 08/22/16 at 11:43 ; Status DC Iohexol (Omnipaque 350 Inj) 100 ml STK-MED ONCE IV Last administered on 12:11; Start 08/22/16 at 12:11; Stop 08/22/16 at 12:12; Status DC Ondansetron HCl 4 mg 4 mg Q8HR PRN IV PUSH NAUSEA; Start 08/22/16 at 12:45 Pharmacy Profile Note 0 ml @ 0 mls/hr UNSCH OTHER ; Start 08/22/16 at 13:15 Piperacillin Sod/ Tazobactam Sod (Zosyn 3.375 Gm Premix) 50 ml @ 100 mls/hr Q6H IV Last administered on 08/22/16 17:09; Start 08/22/16 at 18:00; Stop at 20:06; Status DC Acetaminophen/ Hydrocodone Bitart ([place] 5-325 Mg) 1 tab Q4H PRN PO PAIN < 5; Start 08/22/16 at 13:15; Stop 08/23/16 at 14:31; Status DC Acetaminophen/ Hydrocodone Bitart ([place] 5-325 Mg) 2 tab Q4H PRN PO PAIN >5 Last administered on 08/23/16 05:39; Start 08/22/16 at 13:15; Stop 08/23/16 at 14:31; Status DC Hydromorphone HCl (Dilaudid Pf Inj) 0.5 mg Q4H PRN IV PUSH BREAKTHROUGH PAIN Last administered on 08/23/16 11:47; Start 08/22/16 at 13:15; Stop 08/23/16 at 14:31; Status DC Acetaminophen 650 mg 650 mg Q4H PRN PO FEVER Last administered on 08/23/16 17: 53; Start 08/22/16 at 13:15 Vancomycin HCl/ Sodium Chloride (Vancomycin Inj/ NS 250 ml Inj) 262.5 ml @ 250 mls/hr Q12H IV Last administered on 08/23/16 22:29; Start 08/22/16 at 22:00 Miscellaneous Information SPECIFIC LAB TO BE DRAWN:VANCO TROUGH DATE TO... ONCE ONCE .XX ; Start 08/24/16 at 09:45; Stop 08/24/16 at 09:46 Nicotine (Habitrol 21 Mg Patch.24 Hr) 1 patch DAILY T-DERMAL Last administered on 08/24/16 08:01; Start 08/22/16 at 13:45 Miscellaneous Information 1 DAILY T-DERMAL ; Start 08/23/16 at 09:00 Alprazolam 0.25 mg 0.25 mg ONCE ONCE PO Last administered on 08/22/16 20:11; Start 08/22/16 at 20:15; Stop 08/22/16 at 20:16; Status DC Clindamycin Phosphate 900 mg/ Sodium Chloride 106 ml @ 212 mls/hr Q8H IV Last administered on 08/24/16 04:59; Start 08/22/16 at 21:00 Piperacillin Sod/ Tazobactam Sod (Zosyn 3.375 Gm Premix) 50 ml @ 100 mls/hr Q6H IV Last administered on 08/24/16 06:04; Start 08/23/16 at 00:00 Fentanyl Citrate (fentaNYL INJ) 250 mcg STK-MED ONCE .ROUTE ; Start 08/23/16 at 13:21; Stop 08/23/16 at 13:22; Status DC Ketorolac Tromethamine (Toradol Inj) 30 mg Q6H PRN IV PUSH PAIN SCALE 3 TO 5 Last administered on 08/24/16 08:00; Start 08/23/16 at 14:15; Stop 08/27/16 at 14:14 Hydromorphone HCl (Dilaudid Pf Inj) 2 mg Q4H PRN IV PUSH PAIN SCALE 6 TO 10 Last administered on 08/24/16 06:06; Start 08/23/16 at 14:15 Oxycodone/ Acetaminophen (Percocet 10-325 Mg) 1 tab Q4H PRN PO PAIN SCALE 3 TO 6 Last administered on 08/24/16 05:04; Start 08/23/16 at 14:15 Morphine Sulfate (Morphine Inj) 10 mg STK-MED ONCE .ROUTE Last administered on 08/23/16 14:22; Start 08/23/16 at 14:17; Stop 08/23/16 at 14:18; Status DC Morphine Sulfate 10 mg 10 mg STK-MED ONCE .ROUTE Last administered on 14:31; Start 08/23/16 at 14:30; Stop 08/23/16 at 14:31; Status DC Sodium Chloride (NS 1000 ml Inj) 1,000 ml @ As Directed STK-MED ONCE .ROUTE ; Start 08/23/16 at 14:39; Stop 08/23/16 at 14:40; Status DC Bupivacaine HCl/ Epinephrine Bitart (Marcaine-Epi Pf 0.25% Inj) 30 ml STK-MED ONCE INFIL Last administered on 08/23/16 13:45; Start 08/23/16 at 13:45; Stop 08/23/16 at 15:03; Status DC A/P Assessment and Plan A/P - sepsis due to abdominal wall cellulitis/abscess s/p I/D and wound vac placement continue with broad spectrum IV antibiotics- continue with pain control follow the cultures . surgery follow-up appreciated and cleared for discharge. ID following. -leukocytosis- due to infection- resolved. -history of hypertension; not on any meds- BP controlled- will monitor for now Discharge Planning when cleared by ID. case management will be consulted for wound vac. Rick Jean MD August 24, 2016 09:33
[2016-08-24] MEDS ORDERED: PHARMACY ORDERED LAB ONE (09:45)
[2016-08-24] MEDS: VANCOMYCIN INJ 1,250 MG in SODIUM CHLOR 0.9% 250 ML INJ 250 ML IV SCH (10:18)
[2016-08-24] MEDS: HYDROmorphone HCL PF 1 MG/ML VIAL IV PUSH PRN ×3 (13:00→22:53)
--- NOTE | 2016-08-24 13:30 | HHI.IDPN ---
Subjective Subjective Remarks sp I+D yday, growing MSSA VAC was placed co pain Antibiotics vanco clinda zosyn Allergies: Coded Allergies: No Known Allergies (Verified , 08/22/16) Objective . Vital Signs Date Time Temp Pulse Resp B/P Pulse Ox O2 Delivery O2 Flow Rate FiO2 08/24/16 05:35 98.1 79 18 145/91 98 08/24/16 01:24 97.9 70 16 135/89 99 08/23/16 21:30 97.4 77 18 134/81 98 08/23/16 16:00 96.4 72 20 120/84 94 08/23/16 15:15 97.9 86 20 135/89 94 Room Air 08/23/16 15:00 82 20 129/84 95 Room Air 08/23/16 14:45 80 20 135/80 98 Nasal Cannula 2 08/23/16 14:30 79 20 134/85 97 Nasal Cannula 3 08/23/16 14:12 98.1 81 20 116/70 97 Nasal Cannula 3 08/23/16 08/23/16 08/24/16 15:00 23:00 07:00 Intake Total 0 ml 420 ml Output Total 650 ml 1400 ml Balance -650 ml 420 ml -1400 ml Intake Oral 0 ml 120 ml IV Total 300 ml Output Urine Total 650 ml 1400 ml # Bowel Movements 0 . Laboratory Tests Test 08/23/16 06:31 White Blood Count 8.6 TH/MM3 Red Blood Count 4.29 MIL/MM3 Hemoglobin 13.4 GM/DL Hematocrit 39.8 % Mean Corpuscular Volume 92.7 FL Mean Corpuscular Hemoglobin 31.1 PG Mean Corpuscular Hemoglobin 33.5 % Concent Red Cell Distribution Width 12.1 % Platelet Count 231 TH/MM3 Mean Platelet Volume 7.7 FL Neutrophils (%) (Auto) 66.3 % Lymphocytes (%) (Auto) 18.9 % Monocytes (%) (Auto) 8.5 % Eosinophils (%) (Auto) 4.8 % Basophils (%) (Auto) 1.5 % Neutrophils # (Auto) 5.8 TH/MM3 Lymphocytes # (Auto) 1.6 TH/MM3 Monocytes # (Auto) 0.7 TH/MM3 Eosinophils # (Auto) 0.4 TH/MM3 Basophils # (Auto) 0.1 TH/MM3 CBC Comment DIFF FINAL Differential Comment Microbiology Date/Time Procedure Status Source Growth 08/22/16 11:42 Aerobic Blood Culture - Preliminary Resulted Blood Peripheral NO GROWTH IN 2 DAYS 08/22/16 11:42 Anaerobic Blood Culture - Preliminary Resulted Blood Peripheral NO GROWTH IN 2 DAYS 08/22/16 11:47 Aerobic Blood Culture - Preliminary Resulted Blood Peripheral NO GROWTH IN 2 DAYS 08/22/16 11:47 Anaerobic Blood Culture - Preliminary Resulted Blood Peripheral NO GROWTH IN 2 DAYS 08/23/16 13:48 Gram Stain - Final Resulted Abscess Abdomen 08/23/16 13:48 Wound Culture - Preliminary Resulted Staphylococcus Aureus 08/23/16 13:48 Acid Fast Stain Received Abscess Abdomen Pending 08/23/16 13:48 Mycobacterial Culture Received Abscess Abdomen Pending 08/23/16 13:48 Fungal Smear Received Abscess Abdomen Pending 08/23/16 13:48 Fungal Culture Received Abscess Abdomen Pending Imaging Last Impressions Abdomen/Pelvis CT 08/22/16 1120 Signed Impressions: Service Date/Time: Monday, August 22, 2016 11:49 - CONCLUSION: 1. Edema and skin thickening in the left anterior abdominal wall most characteristic of cellulitis without discrete or loculated abscess. No acute findings within the abdomen and pelvis. Small hiatal hernia. Erwin Jones MD Physical Exam CONSTITUTIONAL/GENERAL: This is an adequately nourished patient, in mild distress. 2/2 pain SKIN: No jaundice, VAC in place in LLQ with tender erythema around erytjma and tenderness of flank and L side of the back subsided No opne lesions EYES: Pupils equal and round and reactive. Extraocular motions intact. No scleral icterus. No injection or drainage. Fundi not examined. RESPIRATORY/CHEST: Symmetric, unlabored respirations. MUSCULOSKELETAL: Extremities without clubbing, cyanosis, or edema. NEUROLOGICAL: Awake and alert. NOn focal PSYCHIATRIC: No obvious anxiety/depression. no apparent hallucinations or other psychotic thought process. Assessment & Plan Remarks Cellulitis, and abscess of abdominal wall 5x 6, MSSA sp I+D POD #1 Leukocytosis - resolved Ho MRSA dc vancomycin, zosyn , and clindamycin change to ancef - can be switched to PO Keflex in next 24-48 if cont to improve and discharfged to complete 10-14 days course Raquel Marr MD August 24, 2016 13:30
[2016-08-24] MEDS: amLODIPine BESYLATE 5 MG TAB PO SCH (14:00)
--- NOTE | 2016-08-24 15:42 | HHI.PR ---
Subjective Subjective Notes pain Objective Vitals/I&O Vital Signs Date Time Temp Pulse Resp B/P Pulse Ox O2 Delivery O2 Flow Rate FiO2 08/24/16 08:00 96.1 65 18 147/94 95 08/23/16 15:15 Room Air 08/23/16 14:45 2 Labs Laboratory Tests Test 08/24/16 09:56 Vancomycin Level Trough 13.0 Date/Time Procedure Status Source Growth 08/23/16 13:48 Gram Stain - Final Resulted Abscess Abdomen 08/23/16 13:48 Wound Culture - Preliminary Resulted Staphylococcus Aureus 08/23/16 13:48 Fungal Smear Received Abscess Abdomen Pending 08/23/16 13:48 Fungal Culture Received Abscess Abdomen Pending 08/23/16 13:48 Acid Fast Stain Received Abscess Abdomen Pending 08/23/16 13:48 Mycobacterial Culture Received Abscess Abdomen Pending 08/22/16 11:47 Aerobic Blood Culture - Preliminary Resulted Blood Peripheral NO GROWTH IN 2 DAYS 08/22/16 11:47 Anaerobic Blood Culture - Preliminary Resulted Blood Peripheral NO GROWTH IN 2 DAYS Abdomen: Non-distended, Non-tender Narrative Exam VAC site clean, intact, some mild cellulitis A/P Assessment and Plan 41yo s/p ID abdominal wall, stable. recommend DC VAC Thursday and DC home with wet-to-dry dressings and home health, f /u with surgery next week Syd Ackerman MD August 24, 2016 15:42
[2016-08-24] MEDS ORDERED: ENALAPRILAT 1.25 MG/ML VIAL IV PUSH PRN (19:15)
[2016-08-24 20:00] VITALS: BP 158/107; PULSE 71; RESP 18; TEMP 97.8; O2SAT 100
[2016-08-24] MEDS ORDERED: HYDROmorphone HCL PF 1 MG/ML VIAL IV PUSH ONE (21:15)
[2016-08-25] MEDS: ZOLPIDEM TARTRATE 5 MG TAB PO PRN (00:21)
[2016-08-25] MEDS: oxyCODONE/ACETAMINOPHEN 10 MG/325 MG TAB PO PRN ×5 (00:22→22:06)
[2016-08-25 00:33] VITALS: BP 133/88; PULSE 89; RESP 18; TEMP 97.3; O2SAT 98
[2016-08-25] MEDS: HYDROmorphone HCL PF 1 MG/ML VIAL IV PUSH PRN ×5 (03:51→20:51)
[2016-08-25 04:44] VITALS: BP 139/91; PULSE 88
[2016-08-25 08:00] VITALS: BP 142/97; PULSE 60; RESP 20; TEMP 96.2; O2SAT 95
[2016-08-25] MEDS ORDERED: CEPH-459 PO (08:16)
--- NOTE | 2016-08-25 08:19 | HHI.PR ---
Subjective Remarks in no acute distress. afebrile. complaining of abdominal pain. no other new complaints. Objective Vitals Vital Signs Date Time Temp Pulse Resp B/P Pulse Ox O2 Delivery O2 Flow Rate FiO2 08/25/16 04:44 88 139/91 08/25/16 04:21 18 08/25/16 01:22 18 08/25/16 00:33 97.3 89 18 133/88 98 08/24/16 21:46 18 08/24/16 20:00 97.8 71 18 158/107 100 08/24/16 19:04 18 I/O 08/24/16 08/24/16 08/24/16 08/25/16 08/25/16 08/25/16 07:00 15:00 23:00 07:00 15:00 23:00 Intake Total 720 ml 100 ml Output Total 1400 ml 1300 ml 850 ml Balance -1400 ml 720 ml -1200 ml -850 ml Intake Oral 720 ml IV Total 100 ml Output Urine Total 1400 ml 1300 ml 850 ml # Voids 4 # Bowel Movements 0 Result Diagram: 08/23/16 0631 08/22/16 1140 Imaging Last Impressions Abdomen/Pelvis CT 08/22/16 1120 Signed Impressions: Service Date/Time: Monday, August 22, 2016 11:49 - CONCLUSION: 1. Edema and skin thickening in the left anterior abdominal wall most characteristic of cellulitis without discrete or loculated abscess. No acute findings within the abdomen and pelvis. Small hiatal hernia. Erwin Jones MD Objective Remarks GENERAL: This is a well-nourished, well-developed patient, in no apparent distress. CARDIOVASCULAR: Regular rate and regular rhythm without murmurs, gallops, or rubs. RESPIRATORY: Clear to auscultation. Breath sounds equal bilaterally. No wheezes , rales, or rhonchi. GASTROINTESTINAL: wound vac in place- erythema and swelling of the left abdomen has much improved. MUSCULOSKELETAL: Extremities without clubbing, cyanosis, or edema. NEURO: Alert & Oriented x4 to person, place, time, situation. Moves all ext x4 Procedures I/D of the abdominal wall abscess and wound vac placement Medications and IVs Current Medications Morphine Sulfate (Morphine Inj) 4 mg Q1HR PRN IV PUSH PAIN Last administered on 08/23/16t 12:50; Start 08/22/16 at 11:30; Stop 08/23/16 at 14:31; Status DC Ondansetron HCl 4 mg 4 mg ONCE ONCE IV Last administered on 08/22/16 12:06; Start 08/22/16 at 11:30; Stop 08/22/16 at 11:31; Status DC Piperacillin Sod/ Tazobactam Sod 100 ml @ 200 mls/hr ONCE STAT IV Last administered on 08/22/16 12:07; Start 08/22/16 at 11:20; Stop 08/22/16 at 11:49 ; Status DC Vancomycin HCl 1000 mg/Sodium Chloride 250 ml @ 250 mls/hr ONCE STAT IV Last administered on 08/22/16 12:37; Start 08/22/16 at 11:20; Stop 08/22/16 at 12:19 ; Status DC Sodium Chloride 1,000 ml @ 1,000 mls/hr Q1H ONCE IV Last administered on 12:07; Start 08/22/16 at 11:20; Stop 08/22/16 at 12:19; Status DC Sodium Chloride 1,000 ml @ 1,000 mls/hr Q1H ONCE IV Last administered on 13:24; Start 08/22/16 at 11:20; Stop 08/22/16 at 12:19; Status DC Sodium Chloride (NS 1000 ml Inj) 400 ml @ 1,000 mls/hr Q24M ONCE IV Last administered on 08/22/16 15:25; Start 08/22/16 at 11:20; Stop 08/22/16 at 11:43 ; Status DC Iohexol (Omnipaque 350 Inj) 100 ml STK-MED ONCE IV Last administered on 12:11; Start 08/22/16 at 12:11; Stop 08/22/16 at 12:12; Status DC Ondansetron HCl 4 mg 4 mg Q8HR PRN IV PUSH NAUSEA; Start 08/22/16 at 12:45 Pharmacy Profile Note 0 ml @ 0 mls/hr UNSCH OTHER ; Start 08/22/16 at 13:15; Stop 08/24/16 at 12:42; Status DC Piperacillin Sod/ Tazobactam Sod (Zosyn 3.375 Gm Premix) 50 ml @ 100 mls/hr Q6H IV Last administered on 08/22/16 17:09; Start 08/22/16 at 18:00; Stop at 20:06; Status DC Acetaminophen/ Hydrocodone Bitart ([place] 5-325 Mg) 1 tab Q4H PRN PO PAIN < 5; Start 08/22/16 at 13:15; Stop 08/23/16 at 14:31; Status DC Acetaminophen/ Hydrocodone Bitart ([place] 5-325 Mg) 2 tab Q4H PRN PO PAIN >5 Last administered on 08/23/16 05:39; Start 08/22/16 at 13:15; Stop 08/23/16 at 14:31; Status DC Hydromorphone HCl (Dilaudid Pf Inj) 0.5 mg Q4H PRN IV PUSH BREAKTHROUGH PAIN Last administered on 08/23/16 11:47; Start 08/22/16 at 13:15; Stop 08/23/16 at 14:31; Status DC Acetaminophen 650 mg 650 mg Q4H PRN PO FEVER Last administered on 08/23/16 17: 53; Start 08/22/16 at 13:15 Vancomycin HCl/ Sodium Chloride (Vancomycin Inj/ NS 250 ml Inj) 262.5 ml @ 250 mls/hr Q12H IV Last administered on 08/24/16 10:18; Start 08/22/16 at 22:00; Stop 08/24/16 at 12:42; Status DC Miscellaneous Information SPECIFIC LAB TO BE DRAWN:VANCO TROUGH DATE TO... ONCE ONCE .XX Last administered on 08/24/16 09:45; Start 08/24/16 at 09:45; Stop 08/24/16 at 09:46; Status DC Nicotine (Habitrol 21 Mg Patch.24 Hr) 1 patch DAILY T-DERMAL Last administered on 08/24/16 08:01; Start 08/22/16 at 13:45 Miscellaneous Information 1 DAILY T-DERMAL ; Start 08/23/16 at 09:00 Alprazolam 0.25 mg 0.25 mg ONCE ONCE PO Last administered on 08/22/16 20:11; Start 08/22/16 at 20:15; Stop 08/22/16 at 20:16; Status DC Clindamycin Phosphate 900 mg/ Sodium Chloride 106 ml @ 212 mls/hr Q8H IV Last administered on 08/24/16 04:59; Start 08/22/16 at 21:00; Stop 08/24/16 at 12:42 ; Status DC Piperacillin Sod/ Tazobactam Sod (Zosyn 3.375 Gm Premix) 50 ml @ 100 mls/hr Q6H IV Last administered on 08/24/16 06:04; Start 08/23/16 at 00:00; Stop at 12:42; Status DC Fentanyl Citrate (fentaNYL INJ) 250 mcg STK-MED ONCE .ROUTE ; Start 08/23/16 at 13:21; Stop 08/23/16 at 13:22; Status DC Ketorolac Tromethamine (Toradol Inj) 30 mg Q6H PRN IV PUSH PAIN SCALE 3 TO 5 Last administered on 08/24/16 08:00; Start 08/23/16 at 14:15; Stop 08/24/16 at 09:30; Status DC Hydromorphone HCl (Dilaudid Pf Inj) 2 mg Q4H PRN IV PUSH PAIN SCALE 6 TO 10 Last administered on 08/24/16 06:06; Start 08/23/16 at 14:15; Stop 08/24/16 at 09:30; Status DC Oxycodone/ Acetaminophen (Percocet 10-325 Mg) 1 tab Q4H PRN PO PAIN SCALE 3 TO 6 Last administered on 08/24/16 05:04; Start 08/23/16 at 14:15 Morphine Sulfate (Morphine Inj) 10 mg STK-MED ONCE .ROUTE Last administered on 08/23/16 14:22; Start 08/23/16 at 14:17; Stop 08/23/16 at 14:18; Status DC Morphine Sulfate 10 mg 10 mg STK-MED ONCE .ROUTE Last administered on 14:31; Start 08/23/16 at 14:30; Stop 08/23/16 at 14:31; Status DC Sodium Chloride (NS 1000 ml Inj) 1,000 ml @ As Directed STK-MED ONCE .ROUTE ; Start 08/23/16 at 14:39; Stop 08/23/16 at 14:40; Status DC Bupivacaine HCl/ Epinephrine Bitart (Marcaine-Epi Pf 0.25% Inj) 30 ml STK-MED ONCE INFIL Last administered on 08/23/16 13:45; Start 08/23/16 at 13:45; Stop 08/23/16 at 15:03; Status DC Oxycodone/ Acetaminophen (Percocet 10-325 Mg) 2 tab Q4H PRN PO PAIN 7-10 Last administered on 08/25/16 00:22; Start 08/24/16 at 09:30 Hydromorphone HCl 0.5 mg 0.5 mg Q4H PRN IV PUSH BREAKTHROUGH PAIN Last administered on 08/24/16 18:34; Start 08/24/16 at 09:30; Stop 08/24/16 at 21:03 ; Status DC Cefazolin Sodium/ Sodium Chloride (Ancef Inj/NS Inj) 100 ml @ 200 mls/hr Q8H IV Last administered on 08/25/16 03:51; Start 08/24/16 at 13:00 Amlodipine Besylate (Norvasc) 5 mg DAILY PO Last administered on 08/24/16 14: 00; Start 08/24/16 at 13:15 Zolpidem Tartrate (Ambien) 5 mg HS PRN PO Insomnia Last administered on 00:21; Start 08/24/16 at 18:15 Enalaprilat (Vasotec Inj) 1.25 mg Q6H PRN IV PUSH SBP> OR = 180, DBP> OR = 100 Last administered on 08/24/16 20:20; Start 08/24/16 at 19:15 Hydromorphone HCl (Dilaudid Pf Inj) 1 mg Q4H PRN IV PUSH BREAKTHROUGH PAIN Last administered on 08/25/16 07:27; Start 08/24/16 at 21:30 Hydromorphone HCl (Dilaudid Pf Inj) 1 mg ONCE ONCE IV PUSH Last administered on 08/24/16 21:16; Start 08/24/16 at 21:15; Stop 08/24/16 at 21:16; Status DC A/P Assessment and Plan A/P - sepsis due to abdominal wall cellulitis/abscess s/p I/D and wound vac placement treated with broad spectrum IV antibiotics- continue with pain control ID and surgery follow-ups appreciated; wound vac will be discontinued today and patient can be discharged on po kefelx to complete the course of treatment. -leukocytosis- due to infection- resolved. -history of hypertension; not on any meds- BP overall controlled- will monitor for now- f/u as outpatient Discharge Planning dc home likely today. see med list. f/u; pcp, surgery. d/w the patient. Rick Jean MD August 25, 2016 08:19
--- NOTE | 2016-08-25 08:20 | HHI.DS ---
Discharge Summary Admission Date August 22, 2016 at 12:43 Discharge Date: August 26, 2016 Admitting Diagnosis abdominal wall cellulitis, sepsis (1) Abdominal wall cellulitis ICD Code: L03.311 Diagnosis: Principal (2) Sepsis affecting skin ICD Code: L02.91 Diagnosis: Principal Procedures I/D of the abdominal wall abscess and wound vac placement Brief History - From Admission patient is a 41 y/o male with history of hypertension who presented to ER with swelling and redness of the abdomen. he says that it probably started as a ' spider bite' a week ago. the redness, swelling and pain started to get worse.this involves the left side of the abdomen with some radiation to the left flank. he reports some fever and chills at home. he says that he took some keflex at home but with no significant improvement. CBC/BMP: 08/23/16 0631 08/22/16 1140 Significant Findings Laboratory Tests Test 08/22/16 08/23/16 08/23/16 08/24/16 11:40 00:00 06:31 09:56 White Blood Count 17.6 TH/MM3 (4.0-11.0) Neutrophils (%) (Auto) 81.3 % (16.0-70.0) Neutrophils # (Auto) 14.5 TH/MM3 (1.8-7.7) Estimat Glomerular Filtration 74 ML/MIN (>89) Rate Total Protein 8.3 GM/DL (6.4-8.2) Albumin 3.3 GM/DL (3.4-5.0) Ethyl Alcohol Level 68 MG/DL (0-5) Urine Color DEBORAH (YELLW/STRAW) Urine Specific [place] GREATER THAN 1.035 (1.002-1.035) Urine Opiates Screen POS (NEG) Urine Benzodiazepines Screen POS (NEG) Urine Cannabinoids Screen POS (NEG) Red Blood Count 4.29 MIL/MM3 (4.50-5.90) Monocytes (%) (Auto) 8.5 % (0.0-8.0) Eosinophils (%) (Auto) 4.8 % (0.0-4.0) Vancomycin Level Trough 13.0 MCG/ML (5.0-10.0) Imaging Last Impressions Abdomen/Pelvis CT 08/22/16 1120 Signed Impressions: Service Date/Time: Monday, August 22, 2016 11:49 - CONCLUSION: 1. Edema and skin thickening in the left anterior abdominal wall most characteristic of cellulitis without discrete or loculated abscess. No acute findings within the abdomen and pelvis. Small hiatal hernia. Erwin Jones MD PE at Discharge GENERAL: This is a well-nourished, well-developed patient, in no apparent distress. CARDIOVASCULAR: Regular rate and regular rhythm without murmurs, gallops, or rubs. RESPIRATORY: Clear to auscultation. Breath sounds equal bilaterally. No wheezes , rales, or rhonchi. GASTROINTESTINAL: wound vac in place- erythema and swelling of the left abdomen has much improved. MUSCULOSKELETAL: Extremities without clubbing, cyanosis, or edema. NEURO: Alert & Oriented x4 to person, place, time, situation. Moves all ext x4 Hospital Course - sepsis due to abdominal wall cellulitis/abscess s/p I/D and wound vac placement treated with broad spectrum IV antibiotics- continue with pain control ID and surgery follow-ups appreciated; wound vac will be discontinued today and patient can be discharged on po kefelx to complete the course of treatment. -leukocytosis- due to infection- resolved. -history of hypertension; not on any meds- BP overall controlled- will monitor for now- f/u as outpatient Pt Condition on Discharge: Good Discharge Disposition: Discharge Home Discharge Time: <= 30 minutes Discharge Instructions DIET: Follow Instructions for: As Tolerated, No Restrictions Activities you can perform: Regular-No Restrictions Follow up Referrals: PCP Follow-up Surgical New Medications: Cephalexin (Keflex) 250 Mg Cap 500 MG PO Q6H Infection Days 10 Ref 0 CAP Oxycodone-Acetaminophen (Oxycodone-Acetaminophen) 10-325 mg Tab 1 TAB PO Q6HR PRN pain #20 Ref 0 TAB Rick Jean MD August 25, 2016 08:20
--- NOTE | 2016-08-25 08:20 | HHI.DCPOC ---
Discharge Care Plan Diagnosis: (1) Abdominal wall cellulitis Your Health Problems Are: Inflammation Swelling Goals to Promote Your Health * To prevent worsening of your condition and complications * To maintain your health at the optimal level Directions to Meet Your Goals Take your medications as prescribed Follow your dietary instruction Follow activity as directed Keep your appointments as scheduled Take your immunizations and boosters as scheduled If your symptoms worsen call your PCP, if no PCP go to Urgent Care Center or Emergency Room Smoking is Dangerous to Your Health. Avoid second hand smoke Call the 24-hour hour crisis hotline for domestic abuse at Rick Jean MD August 25, 2016 08:19
[2016-08-25] MEDS: amLODIPine BESYLATE 5 MG TAB PO SCH (08:49)
[2016-08-25] MEDS: NICOTINE 21 MG/24 HR PATCH T-DERMAL SCH (08:51)
[2016-08-25] MEDS: REMOVE OLD PATCH T-DERMAL SCH (09:00)
[2016-08-25 12:00] VITALS: BP 140/106; PULSE 81; RESP 20; TEMP 96.8; O2SAT 97
[2016-08-25 16:00] VITALS: BP 122/92; PULSE 64; RESP 18; TEMP 96; O2SAT 95
[2016-08-25 20:00] VITALS: BP 141/110; PULSE 67; RESP 18; TEMP 98.1; O2SAT 97
[2016-08-26] VITALS: BP 149/96; PULSE 67; RESP 18; TEMP 97.2; O2SAT 98
[2016-08-26] MEDS: HYDROmorphone HCL PF 1 MG/ML VIAL IV PUSH PRN ×4 (01:06→11:55)
[2016-08-26] MEDS: ZOLPIDEM TARTRATE 5 MG TAB PO PRN (01:06)
[2016-08-26] MEDS: oxyCODONE/ACETAMINOPHEN 10 MG/325 MG TAB PO PRN ×2 (04:13→10:10)
[2016-08-26 08:00] VITALS: BP 122/93; PULSE 69; RESP 18; TEMP 96.6; O2SAT 93
[2016-08-26] MEDS: REMOVE OLD PATCH T-DERMAL SCH (08:26)
[2016-08-26] MEDS: amLODIPine BESYLATE 5 MG TAB PO SCH (08:26)
[2016-08-26] MEDS: NICOTINE 21 MG/24 HR PATCH T-DERMAL SCH (08:26)
--- NOTE | 2016-08-26 10:01 | HHI.PR ---
Subjective Remarks in no acute distress. has some pain to the left abdomen. no fever. awaiting wound vac removal. d/w the RN. Objective Vitals Vital Signs Date Time Temp Pulse Resp B/P Pulse Ox O2 Delivery O2 Flow Rate FiO2 08/26/16 08:58 18 08/26/16 08:00 96.6 69 18 122/93 93 08/26/16 05:13 18 08/26/16 00:00 97.2 67 18 149/96 98 08/25/16 20:00 98.1 67 18 141/110 97 08/25/16 16:00 96.0 64 18 122/92 95 08/25/16 12:00 96.8 81 20 140/106 97 I/O 08/25/16 08/25/16 08/25/16 08/26/16 08/26/16 08/26/16 07:00 15:00 23:00 07:00 15:00 23:00 Intake Total 360 ml 240 ml Output Total 850 ml 450 ml 400 ml Balance -850 ml 360 ml -210 ml -400 ml Intake Oral 360 ml 240 ml Output Urine Total 850 ml 450 ml 400 ml # Voids 2 # Bowel Movements 1 0 0 Result Diagram: 08/23/16 0631 08/25/16 1428 Imaging Last Impressions Abdomen/Pelvis CT 08/22/16 1120 Signed Impressions: Service Date/Time: Monday, August 22, 2016 11:49 - CONCLUSION: 1. Edema and skin thickening in the left anterior abdominal wall most characteristic of cellulitis without discrete or loculated abscess. No acute findings within the abdomen and pelvis. Small hiatal hernia. Erwin Jones MD Objective Remarks GENERAL: This is a well-nourished, well-developed patient, in no apparent distress. CARDIOVASCULAR: Regular rate and regular rhythm without murmurs, gallops, or rubs. RESPIRATORY: Clear to auscultation. Breath sounds equal bilaterally. No wheezes , rales, or rhonchi. GASTROINTESTINAL: wound vac in place- erythema and swelling of the left abdomen has much improved. MUSCULOSKELETAL: Extremities without clubbing, cyanosis, or edema. NEURO: Alert & Oriented x4 to person, place, time, situation. Moves all ext x4 Procedures I/D of the abdominal wall abscess and wound vac placement Medications and IVs Current Medications Morphine Sulfate (Morphine Inj) 4 mg Q1HR PRN IV PUSH PAIN Last administered on 08/23/16 12:50; Start 08/22/16 at 11:30; Stop 08/23/16 at 14:31; Status DC Ondansetron HCl 4 mg 4 mg ONCE ONCE IV Last administered on 08/22/16 12:06; Start 08/22/16 at 11:30; Stop 08/22/16 at 11:31; Status DC Piperacillin Sod/ Tazobactam Sod 100 ml @ 200 mls/hr ONCE STAT IV Last administered on 08/22/16 12:07; Start 08/22/16 at 11:20; Stop 08/22/16 at 11:49 ; Status DC Vancomycin HCl 1000 mg/Sodium Chloride 250 ml @ 250 mls/hr ONCE STAT IV Last administered on 08/22/16 12:37; Start 08/22/16 at 11:20; Stop 08/22/16 at 12:19 ; Status DC Sodium Chloride 1,000 ml @ 1,000 mls/hr Q1H ONCE IV Last administered on 12:07; Start 08/22/16 at 11:20; Stop 08/22/16 at 12:19; Status DC Sodium Chloride 1,000 ml @ 1,000 mls/hr Q1H ONCE IV Last administered on 13:24; Start 08/22/16 at 11:20; Stop 08/22/16 at 12:19; Status DC Sodium Chloride (NS 1000 ml Inj) 400 ml @ 1,000 mls/hr Q24M ONCE IV Last administered on 08/22/16 15:25; Start 08/22/16 at 11:20; Stop 08/22/16 at 11:43 ; Status DC Iohexol (Omnipaque 350 Inj) 100 ml STK-MED ONCE IV Last administered on 12:11; Start 08/22/16 at 12:11; Stop 08/22/16 at 12:12; Status DC Ondansetron HCl 4 mg 4 mg Q8HR PRN IV PUSH NAUSEA; Start 08/22/16 at 12:45 Pharmacy Profile Note 0 ml @ 0 mls/hr UNSCH OTHER ; Start 08/22/16 at 13:15; Stop 08/24/16 at 12:42; Status DC Piperacillin Sod/ Tazobactam Sod (Zosyn 3.375 Gm Premix) 50 ml @ 100 mls/hr Q6H IV Last administered on 08/22/16 17:09; Start 08/22/16 at 18:00; Stop at 20:06; Status DC Acetaminophen/ Hydrocodone Bitart ([place] 5-325 Mg) 1 tab Q4H PRN PO PAIN < 5; Start 08/22/16 at 13:15; Stop 08/23/16 at 14:31; Status DC Acetaminophen/ Hydrocodone Bitart ([place] 5-325 Mg) 2 tab Q4H PRN PO PAIN >5 Last administered on 08/23/16 05:39; Start 08/22/16 at 13:15; Stop 08/23/16 at 14:31; Status DC Hydromorphone HCl (Dilaudid Pf Inj) 0.5 mg Q4H PRN IV PUSH BREAKTHROUGH PAIN Last administered on 08/23/16 11:47; Start 08/22/16 at 13:15; Stop 08/23/16 at 14:31; Status DC Acetaminophen 650 mg 650 mg Q4H PRN PO FEVER Last administered on 08/23/16 17: 53; Start 08/22/16 at 13:15 Vancomycin HCl/ Sodium Chloride (Vancomycin Inj/ NS 250 ml Inj) 262.5 ml @ 250 mls/hr Q12H IV Last administered on 08/24/16 10:18; Start 08/22/16 at 22:00; Stop 08/24/16 at 12:42; Status DC Miscellaneous Information SPECIFIC LAB TO BE DRAWN:VANCO TROUGH DATE TO... ONCE ONCE .XX Last administered on 08/24/16 09:45; Start 08/24/16 at 09:45; Stop 08/24/16 at 09:46; Status DC Nicotine (Habitrol 21 Mg Patch.24 Hr) 1 patch DAILY T-DERMAL Last administered on 08/26/16 08:26; Start 08/22/16 at 13:45 Miscellaneous Information 1 DAILY T-DERMAL Last administered on 08/26/16 08:26 ; Start 08/23/16 at 09:00 Alprazolam 0.25 mg 0.25 mg ONCE ONCE PO Last administered on 08/22/16 20:11; Start 08/22/16 at 20:15; Stop 08/22/16 at 20:16; Status DC Clindamycin Phosphate 900 mg/ Sodium Chloride 106 ml @ 212 mls/hr Q8H IV Last administered on 08/24/16 04:59; Start 08/22/16 at 21:00; Stop 08/24/16 at 12:42 ; Status DC Piperacillin Sod/ Tazobactam Sod (Zosyn 3.375 Gm Premix) 50 ml @ 100 mls/hr Q6H IV Last administered on 08/24/16 06:04; Start 08/23/16 at 00:00; Stop at 12:42; Status DC Fentanyl Citrate (fentaNYL INJ) 250 mcg STK-MED ONCE .ROUTE ; Start 08/23/16 at 13:21; Stop 08/23/16 at 13:22; Status DC Ketorolac Tromethamine (Toradol Inj) 30 mg Q6H PRN IV PUSH PAIN SCALE 3 TO 5 Last administered on 08/24/16 08:00; Start 08/23/16 at 14:15; Stop 08/24/16 at 09:30; Status DC Hydromorphone HCl (Dilaudid Pf Inj) 2 mg Q4H PRN IV PUSH PAIN SCALE 6 TO 10 Last administered on 08/24/16 06:06; Start 08/23/16 at 14:15; Stop 08/24/16 at 09:30; Status DC Oxycodone/ Acetaminophen (Percocet 10-325 Mg) 1 tab Q4H PRN PO PAIN SCALE 3 TO 6 Last administered on 08/25/16 17:46; Start 08/23/16 at 14:15 Morphine Sulfate (Morphine Inj) 10 mg STK-MED ONCE .ROUTE Last administered on 08/23/16 14:22; Start 08/23/16 at 14:17; Stop 08/23/16 at 14:18; Status DC Morphine Sulfate 10 mg 10 mg STK-MED ONCE .ROUTE Last administered on 14:31; Start 08/23/16 at 14:30; Stop 08/23/16 at 14:31; Status DC Sodium Chloride (NS 1000 ml Inj) 1,000 ml @ As Directed STK-MED ONCE .ROUTE ; Start 08/23/16 at 14:39; Stop 08/23/16 at 14:40; Status DC Bupivacaine HCl/ Epinephrine Bitart (Marcaine-Epi Pf 0.25% Inj) 30 ml STK-MED ONCE INFIL Last administered on 08/23/16 13:45; Start 08/23/16 at 13:45; Stop 08/23/16 at 15:03; Status DC Oxycodone/ Acetaminophen (Percocet 10-325 Mg) 2 tab Q4H PRN PO PAIN 7-10 Last administered on 08/26/16 04:13; Start 08/24/16 at 09:30 Hydromorphone HCl 0.5 mg 0.5 mg Q4H PRN IV PUSH BREAKTHROUGH PAIN Last administered on 08/24/16 18:34; Start 08/24/16 at 09:30; Stop 08/24/16 at 21:03 ; Status DC Cefazolin Sodium/ Sodium Chloride (Ancef Inj/NS Inj) 100 ml @ 200 mls/hr Q8H IV Last administered on 08/26/16 04:15; Start 08/24/16 at 13:00 Amlodipine Besylate (Norvasc) 5 mg DAILY PO Last administered on 08/26/16 08: 26; Start 08/24/16 at 13:15 Zolpidem Tartrate (Ambien) 5 mg HS PRN PO Insomnia Last administered on 01:06; Start 08/24/16 at 18:15 Enalaprilat (Vasotec Inj) 1.25 mg Q6H PRN IV PUSH SBP> OR = 180, DBP> OR = 100 Last administered on 08/24/16 20:20; Start 08/24/16 at 19:15 Hydromorphone HCl (Dilaudid Pf Inj) 1 mg Q4H PRN IV PUSH BREAKTHROUGH PAIN Last administered on 08/26/16 08:28; Start 08/24/16 at 21:30 Hydromorphone HCl (Dilaudid Pf Inj) 1 mg ONCE ONCE IV PUSH Last administered on 08/24/16 21:16; Start 08/24/16 at 21:15; Stop 08/24/16 at 21:16; Status DC A/P Assessment and Plan A/P - sepsis due to abdominal wall cellulitis/abscess s/p I/D and wound vac placement- awaiting wound vac removal today- treated with broad spectrum IV antibiotics- continue with pain control wound culture with MSSA. ID follow-up appreciated; patient can be discharged on po kefelx to complete the course of treatment. -leukocytosis- due to infection- resolved. -history of hypertension; not on any meds- BP overall controlled- will monitor for now- f/u as outpatient Discharge Planning dc home likely today after wound vac removal and surgery clearance. see med list. f/u; pcp, surgery. d/w the patient and RN. Rick Jean MD August 26, 2016 10:01
[2016-08-26 12:00] VITALS: BP 148/89; PULSE 83; RESP 18; TEMP 96; O2SAT 99
[2016-08-26] MEDS ORDERED: LACTATED RINGER'S 1000 ML INJ 1,000 ML IV ONE (12:00)
[2016-08-26] MEDS ORDERED: PROPOFOL 200 MG/20 ML AMP IV ONE (12:00)
[2016-08-26 12:41] VITALS: BP 148/89; PULSE 83; RESP 18; TEMP 96; O2SAT 99
[2016-08-26] MEDS ORDERED: LIDOCAINE 1%/EPINEPHrine 1:100,000 SOLN 30 ML VIAL ONE (13:13)
[2016-08-26] MEDS ORDERED: BUPIVACAINE/EPINEPHRINE 0.5% PF 30 ML VIAL ONE (13:14)
[2016-08-26] MEDS ORDERED: KETOROLAC TROMETHAMINE 30 MG/ML (IVP) VIAL ONE (14:09)
[2016-08-26] MEDS ORDERED: KETOROLAC TROMETHAMINE 30 MG/ML (IVP) VIAL IV PUSH ONE (16:00)
--- NOTE | 2016-08-26 23:46 | MP ---
cc: NICKY DREW MD DATE OF SURGERY: 08/26/2016 PREOPERATIVE DIAGNOSIS: 1. Abdominal wall abscess. 2. Status post I&D and Vac placement. POSTOPERATIVE DIAGNOSIS 1. Abdominal wall abscess. 2. Status post I&D and VAC placement. PROCEDURE PERFORMED 1. Vac removal. 2. I&D abdominal wall wound. 3. Placement of wet-to-dry dressings. SURGEON Nicky Drew MD. ANESTHESIA MAC with TIVA. COMPLICATIONS None [employer] WORKER Ricardo Schofield MS3 COMPLICATIONS: None. INDICATIONS Mr. Alfonso is a 41 year-old gentleman who presented with a large abdominal abscess over the weekend. He underwent I&D and Vac placement of the abscess on Thursday morning. The patient has extremely low pain tolerance. This had to be done in the operating room due to intolerance of pain. He has done well. He has had a Vac on for three days now. He returns for Vac placement. Because of the patient's low pain tolerance, he requested this be changed in the operating room. The risks and benefits of Vac removal and conversion to wet-to-dry dressings was discussed with him in the preoperative holding area and he was agreeable. DETAILS The patient identified, brought to the operating room, placed supine on the operating room table. After adequate IV sedation was achieved the abdominal Vac was carefully removed. The wound was then prepped and draped in a standard surgical fashion. 0.25% Marcaine was infused into the wound. The wound was then irrigated out with one liter of warm saline solution. A Kerlix was then used to pack the wound wet-to-dry. Additional local anesthetic was applied through the kerlix. Dry dressing was placed. The patient tolerated the procedure well. Overall the wound appeared healthy and clean with no pus or signs of active infection. The patient's erythema has almost completely resolvewd. Intraoperative wound cultures revealed a fox-sensitive staph. Dry dressings were applied. The patient was awakened and brought to the Recovery Room in stable condition. MD HIRAM Underwood/SAMANTHA /2:05 PM /11:40 PM
== END 2016-08-26 17:11 | disposition home or self-care (01) | DRG 872 ==
LOC: PHED 10:57 → PHEDA 12:43 → PH3B 15:00
PROVIDERS: ADMIT Internal Medicine; ATTEND Internal Medicine
DX: A41.9 Sepsis, unspecified organism (principal); I10 Essential (primary) hypertension; L02.211 Cutaneous abscess of abdominal wall; L03.116 Cellulitis of left lower limb; L03.311 Cellulitis of abdominal wall; Z86.14 Personal history of Methicillin resistant Staphylococcus aureus infection; K44.9 Diaphragmatic hernia without obstruction or gangrene; F17.210 Nicotine dependence, cigarettes, uncomplicated
CPT/HCPCS: 74177; 80053; 80202; 80307; 81001; 82565; 83605; 85025; 86403; 87015; 87040; 87070; 87102; 87116; 87147; 87186; 87205; 87206; 96365; 96375; J0690; J1170; J1885; J2270; J2405; J2543; J3010; J3370; J7030; J7050; J7120; Q9967

== ENCOUNTER 2017-02-24 10:49 | Emergency (ER) | payer SELFPAY ==
[~2017-02-24] VITALS: Ht 180.3 cm; Wt 76.5 kg
[~2017-02-24 10:49] MED LIST changes: -ATEN-104 PO; +CEPH-459 PO; -DILA8TAB4 PO; -MORP60TA20 PO; +OXYC1TAB36 PO; -RANI150 PO; -VALI10TA PO
[2017-02-24 10:53] VITALS: BP 183/108; PULSE 90; RESP 18; TEMP 98; O2SAT 98
[2017-02-24] MEDS ORDERED: CEPH-460 PO (11:10)
[2017-02-24] MEDS ORDERED: IBUP-232 PO (11:10)
--- NOTE | 2017-02-24 11:12 | PD ---
HPI Chief Complaint: Injury Time Seen by Provider: 11:00 Travel History International Travel<30 days: No Contact w/Intl Traveler<30days: No Traveled to known affect area: No History of Present Illness HPI 41-year-old male presents to emergency department for evaluation of injury to his right forearm. 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 He had a handful of leafy spikes when the wind blew causing them to stick in his right forearm. Patient states that the wind blew again and pulled them out. Patient reports localized pain. He denies any fevers or chills. He has a history of hypertension, but is not currently taking any antihypertensives. He states his tetanus immunization has been within 5 years. Severity is mild. Exacerbating factor is movement of the right arm. Alleviating factor is rest. No radiation of pain. PFSH Past Medical History Arthritis: No Asthma: No Autoimmune Disease: No Blood Disorders: No Anxiety: No Depression: No Heart Rhythm Problems: No Cancer: No Cardiovascular Problems: No High Cholesterol: No Chemotherapy: No Chest Pain: No Congestive Heart Failure: No COPD: No Cerebrovascular Accident: No Diabetes: No Diminished Hearing: No Endocrine: No Gastrointestinal Disorders: No GERD: No Glaucoma: No Headaches: No Hepatitis: No Hiatal Hernia: No Hypertension: Yes Immune Disorder: No Kidney Stones: Yes Musculoskeletal: No Neurologic: No Psychiatric: No Reproductive: No Respiratory: No Myocardial Infarction: No Radiation Therapy: No Renal Failure: No Seizures: No Sickle Cell Disease: No Sleep Apnea: No Thyroid Disease: No Ulcer: No Past Surgical History Abdominal Surgery: No AICD: No Body Medical Devices: KIDNEY STENT IN PLACE Cardiac Surgery: No Ear Surgery: No Endocrine Surgery: No Eye Surgery: No Genitourinary Surgery: Yes (KIDNEY STONE AND STENT) Gynecologic Surgery: No Joint Replacement: No Oral Surgery: No Pacemaker: No Thoracic Surgery: No Other Surgery: Yes ("plastic stent in my back somewhere's for my kidneys") Social History Alcohol Use: Yes (DAILY) Tobacco Use: Yes ("1/2 pack of cigarettes a day") Substance Use: Yes (MARIJUANA, XANA/PAIN PILL) Allergies-Medications (Allergen,Severity, Reaction): Coded Allergies: No Known Allergies (Verified Adverse Reaction, Unknown, 02/24/17) Reported Meds & Prescriptions Reported Meds & Active Scripts Active Review of Systems Except as stated in HPI: all other systems reviewed are Neg Physical Exam Narrative GENERAL: Well-nourished, well-developed male patient, afebrile. SKIN: Focused skin assessment warm/dry. Patient has 2 small areas of erythema where patient states he spike poked him, approximately 1-2 mm each. No bleeding. No lacerations, puncture wounds. HEAD: Normocephalic. Atraumatic. EYES: No scleral icterus. No injection or drainage. NECK: Supple, trachea midline. No JVD or lymphadenopathy. CARDIOVASCULAR: Right radial pulse is 2+. RESPIRATORY: No accessory muscle use. MUSCULOSKELETAL: No cyanosis, or edema. Patient has full range of motion of all digits of the right hand. He has full strength of all digits of the right hand. Data Data Last Documented VS Vital Signs Date Time Temp Pulse Resp B/P (MAP) Pulse Ox O2 Delivery O2 Flow Rate FiO2 02/24/17 10:53 98.0 90 18 183/108 (133) 98 Orders Orders Wound Care (02/24/17 11:05) Ibuprofen (Motrin) (02/24/17 11:15) Cephalexin (Keflex) (02/24/17 11:15) MDM Medical Decision Making Medical Screen Exam Complete: Yes Emergency Medical Condition: Yes Medical Record Reviewed: Yes Differential Diagnosis Puncture wound versus cellulitis versus foreign body Narrative Course 41-year-old male presents to the emergency department for evaluation after he states that spikes from a tree poked in his right arm. Physical exam is reassuring. There are 2 areas of very slight erythema that are approximately 1- 2 mm each without drainage or evidence of foreign body. There are no large puncture wounds or lacerations. Patient's tetanus immunization is up-to-date according to the patient. Wound care is completed by RN. Patient will be started on Keflex for prophylaxis. He is given ibuprofen 600 mg by mouth for pain. Patient is instructed to return for any symptoms of infection including spreading erythema, drainage, fevers, worsening pain. He verbalizes agreement. The patient was discharged in stable condition with instructions, including return instructions and follow up instructions. Diagnosis Primary Impression: Punctured skin Referrals: Primary Care Physician call for appointment Patient Instructions: General Instructions, Puncture Wound (ED) Additional Instructions: Your blood pressure was elevated today, 183/108. Please follow up with your primary care physician for recheck. Take Keflex as directed until gone. Take ibuprofen as directed as needed with food for pain. Clean areas twice daily with soap and water and apply [id number] antibiotic ointment. Keep Clean and dry. Follow-up with your primary care physician. Return to the emergency department for any acute worsening of symptoms. Med/Other Pt SpecificInfo: Prescription(s) given Scripts Cephalexin (Keflex) 500 Mg Capsule 500 MG PO Q8H for Infection for 7 Days, #21 CAP 0 Refills Prov: Magdalena Rojas 02/24/17 Ibuprofen (Ibuprofen) 600 Mg Tab 600 MG PO TID Y for PAIN SCALE 1 TO 10, #21 TAB 0 Refills Prov: Magdalena Rojas 02/24/17 Disposition: 01 DISCHARGE HOME Condition: Stable Magdalena Rojas Feb 24, 2017 11:12
[2017-02-24] MEDS ORDERED: IBUPROFEN 600 MG TAB PO ONE (11:15)
[2017-02-24] MEDS ORDERED: CEPHALEXIN MONOHYDRATE 500 MG CAP PO ONE (11:15)
== END 2017-02-24 11:28 | disposition home or self-care (01) ==
LOC: PHEFT 10:49
DX: S51.831A Puncture wound without foreign body of right forearm, initial encounter (principal); X58.XXXA Exposure to other specified factors, initial encounter; Y93.H9 Activity, other involving exterior property and land maintenance, building and construction; I10 Essential (primary) hypertension; Z87.442 Personal history of urinary calculi; F17.210 Nicotine dependence, cigarettes, uncomplicated
CPT/HCPCS: 99283